=== PATIENT | male | born 1985 | race Caucasian/White ===

== ENCOUNTER 2024-04-22 05:42 | Inpatient (IN) | payer BC, SELFPAY ==
[2024-04-22] VITALS (8 sets, daily range): BP systolic 130–158; BP diastolic 80–95; PULSE 65–107; RESP 12–20; TEMP 36–37.5; O2SAT 98–99; BMI 20.6
--- OUTSIDE RECORDS SUMMARY | 2024-04-22 06:12 | XMS_ITS | Continuity of Care Document ---
Author Organization [facility] [place] Address [address] [place] [address]- Care Team Providers Care Farm Loan Representative Name Role Phone Erika Hernandez MD Primary Care Physician Encounter [facility] Date(s): 07/17/23 - 08/16/23 [facility] [address] [place] [address]- Allergies, Adverse Reactions, Alerts No Known Allergies Patient Care team information Care Team Personnel Name: Erika Hernandez MD Position: S Physician - Primary Care Member Role: PCP Address: Address: [address] [place] [id number]- Care Team Related Persons Name: DENISSE MARRUFO Address: home [address] [place] [address]
--- OUTSIDE RECORDS SUMMARY | 2024-04-22 06:12 | XMS_ITS | Continuity of Care Document ---
Author Organization [facility] ter Address [address] [place] [address]- Care Team Providers Care Field Care Coordinator Name Role Phone Not on Staff, PCP Primary Care Physician Unavail able Encounter [facility] [place] Date(s): 04/22/23 - 04/22/[address] [address]- Encounter Diagnosis Alcohol withdrawal(Final) - 04/22/23 Discharge Disposition: A-D/C Home Attending Physician: Sam Trinh MD Admitting Physician: Sam Trinh MD Referring Physician: Not on Staff, Referring MD Allergies, Adverse Reactions, Alerts No Known Allergies Medications naltrexone 50 mg oral tablet 1 tablet = 50 mg, By Mouth, Daily, for 30 days, # 30 tablet, 1 Refills, Acute 06/21/23 12:19:00 EDT, 04/22/23 12:19:00 EDT, Tablet, [id number], Partial fill upon patient request if the prescription is for a schedule II opioid drug. Start Date: 04/22/23 Stop Date: 06/21/23 Status: Ordered Results Radiology Reports * Exam Date Time Procedure Performing Provider Status 04/22/23 8:14 AM Chest 2 Views Frontal and Lat Elia , Willow; Auth (Verified) Notes: (Chest 2 Views Frontal and Lat) Reason For Exam: Chest Pain;Other: RESULT: Chest 2 Views Frontal and Lat Chest 2 Views Frontal and Lat Hx of Present Illness: shaking and bilateral hand numbness x 3 days and getting more intense; Reason: Other:; Chest Pain; Clinical Question(s): Other: COMPARISON: None. FINDINGS: LINES AND TUBES: None. LUNGS AND PLEURA: No focal consolidation. Normal pulmonary vascularity. No pleural effusion. No pneumothorax. HEART, MEDIASTINUM AND LATOYA: Heart is normal in size. Normal mediastinal and hilar contour. BONES AND SOFT TISSUES: No acute abnormality. IMPRESSION: No acute abnormality. WSN: [id number] Ordering Physician: Jessica Harding MD Dictated By: Lizbeth Herring MD Dictated Date/Time: 04/22/23 8:23 am Reviewed By: Lizbeth Herring MD Signed By: Lizbeth Herring MD Signed Date/Time: 04/22/23 8:23 am Transcribed By: DANIELLE Transcribed Date/Time: 04/22/23 8:16 am Vital Signs Most recent to oldest [Reference Range]: 1 2 3 Oxygen Saturation [94-100 %] 100 % (04/22/23 11:37 AM) 100 % (04/22/23 7:10 AM) 100 % (04/22/23 6:52 AM) Pulse Rate [55-90 bpm] 75 bpm (04/22/23 11:37 AM) 103 bpm *H* (04/22/23 7:10 AM) 129 bpm *H* (04/22/23 6:52 AM) Blood Pressure [90-138/55-84 mm Hg] 133/75mm Hg (04/22/23 11:37 AM) 147/88mm Hg *H* (04/22/23 7:21 AM) 173/86mm Hg *H* (04/22/23 7:10 AM) Respiratory Rate [16-30 br/min] 16 br/min (04/22/23 11:37 AM) 22 br/min (04/22/23 7:10 AM) Temperature [96.8-100.4 DegF] 98.0 DegF (04/22/23 7:10 AM) Mode of Delivery (Oxygen) Room air (04/22/23 11:37 AM) Room air (04/22/23 7:10 AM) Room air (04/22/23 6:52 AM) Blood pressure sites Arm, right (04/22/23 7:21 AM) Arm, right (04/22/23 7:10 AM) Temperature Route Oral (04/22/23 7:10 AM) EKG study * Event Display: ECG 12-Lead Authored Date: Please click on pdf link to open report * Event Display: ECG 12-Lead Authored Date: Ventricular Rate: 101 BPM Atrial Rate: 101 BPM P-R Interval: 130 ms QRS Duration: 108 ms Q-T Interval: 354 ms QTC Calculation(Bazett): 459 ms P Pitkin: 77 degrees R Pitkin: 93 degrees T Pitkin: 60 degrees Sinus tachycardia Rightward axis Borderline ECG No previous ECGs available Confirmed by HARRY ESCOBAR MD ([id number]) on 04/22/2023 9:06:35 AM [place]: HARRY ESCOBAR MD * Event Display: EKG Authored Date: Note * Ruthann Bazzi: PERFORM Event Display: Patient Education Leaflets Authored Date: [id number] Alcohol Withdrawal ?? [id number] Alcohol Withdrawal Alcohol withdrawal often starts after prolonged heavy drinking, and then you suddenly stop drinking. Or you cut down on your alcohol use. It is not one thing. It is a complex combination of signs andsymptoms that often occur together and define a certain problem or condition. ??? Alcohol withdrawal is potentially life-threatening. It is a medical emergency. ??? It can startas early as a couple of hours after your last drink. Or it may take 1 to 3 days to develop. ??? It can last from days to a week or more. ??? It can worsen very quickly. Signs and symptoms There are??several stages of alcohol withdrawal. But they overlap, as do their signs and symptoms. In the earlier stages, it most often includes: ??? Anxiety ??? Shakiness ??? Nausea and vomiting ???Sweating ??? Insomnia ??? Headaches ??? Fever ??? Mood swings, irritability, agitation, restlessness ?? Delirium tremens (DTs) DTs are a severe and life-threatening complication. If??DTs happen, they often start about 3 to 5 days after your last drink. They are potentially life threatening, so medical care should be sought. Symptoms of DTs include: ??? Sudden and severe mental or nervous system changes ??? Uncontrollable tremors ??? Severe disorientation, confusion, hallucinations ??? Heart racing, or irregular heartbeat??? High blood pressure ??? Seizures ??? Possible coma and ?? Home care ??? You'll need plenty of rest and fluids over the next several days. Eat regular meals and drink plenty of fluids to prevent dehydration. Don't drink any more alcohol. During this time, itis best that you're not alone. Stay with family or friends who can help and support you. You can also admit yourself to a residential detox program. ??? Don't drive until all symptoms are gone and you are feeling better. If you've had a seizure, don't drive until you've been examined by a healthcare provider. ??? If you were given sedative medicine to reduce your symptoms, don't take it more often than prescribed. Never take it with alcohol. ?? Follow-up care Once you've gone through the withdrawal symptoms, you've fought half of the silverio. To avoid the risk of going back to your past drinking pattern, it's vital that you get follow-up support and treatment. ??? Alcoholics Anonymous (AA) offers support through a self-help fellowship. There are no dues or fees. Search the internet or go to the AA website at www.aa.org to find a local meeting place. ??? [employer] offers support to families of alcohol users. Go to the Al-Anon website at www.al-anon.org . ??? Residential alcohol detox programs are available. Search the internet for treatment [facility]. ?? Call 911 Call 911 if any of these occur: ??? Seizure ??? Trouble breathing or slow, irregular breathing ??? Chest pain ??? Sudden weakness on a side of the body or sudden trouble speaking ??? Heavy bleeding or vomiting blood ??? Very drowsy or trouble awakening ??? Fainting or loss of consciousness ??? Rapid heart rate ?? When to get medical advice Call your healthcare provider right away??if any of these occur: ??? Severe shakiness ??? Hallucinations ??? Fever over 100.4?? F (38.0?? C) ??? Headache, confusion, extreme drowsiness, inability to awaken ??? Increasing upper abdominal pain ??? Repeated vomiting ?? Last Reviewed Date: 2021 ?? [id number] [employer]. All rights reserved. This information is not intended as a substitute for professional medical care. Always follow your healthcare professional's instructions. ?? * Ruthann Bazzi: PERFORM Event Display: Patient Education Leaflets Authored Date: [id number] Alcohol Withdrawal ?? [id number] Alcohol Withdrawal Alcohol withdrawal often starts after prolonged heavy drinking, and then you suddenly stop drinking. Or you cut down on your alcohol use. It is not one thing. It is a complex combination of signs andsymptoms that often occur together and define a certain problem or condition. ??? Alcohol withdrawal is potentially life-threatening. It is a medical emergency. ??? It can startas early as a couple of hours after your last drink. Or it may take 1 to 3 days to develop. ??? It can last from days to a week or more. ??? It can worsen very quickly. Signs and symptoms There are??several stages of alcohol withdrawal. But they overlap, as do their signs and symptoms. In the earlier stages, it most often includes: ??? Anxiety ??? Shakiness ??? Nausea and vomiting ???Sweating ??? Insomnia ??? Headaches ??? Fever ??? Mood swings, irritability, agitation, restlessness ?? Delirium tremens (DTs) DTs are a severe and life-threatening complication. If??DTs happen, they often start about 3 to 5 days after your last drink. They are potentially life threatening, so medical care should be sought. Symptoms of DTs include: ??? Sudden and severe mental or nervous system changes ??? Uncontrollable tremors ??? Severe disorientation, confusion, hallucinations ??? Heart racing, or irregular heartbeat??? High blood pressure ??? Seizures ??? Possible coma and ?? Home care ??? You'll need plenty of rest and fluids over the next several days. Eat regular meals and drink plenty of fluids to prevent dehydration. Don't drink any more alcohol. During this time, itis best that you're not alone. Stay with family or friends who can help and support you. You can also admit yourself to a residential detox program. ??? Don't drive until all symptoms are gone and you are feeling better. If you've had a seizure, don't drive until you've been examined by a healthcare provider. ??? If you were given sedative medicine to reduce your symptoms, don't take it more often than prescribed. Never take it with alcohol. ?? Follow-up care Once you've gone through the withdrawal symptoms, you've fought half of the silverio. To avoid the risk of going back to your past drinking pattern, it's vital that you get follow-up support and treatment. ??? Alcoholics Anonymous (AA) offers support through a self-help fellowship. There are no dues or fees. Search the internet or go to the AA website at www.aa.org to find a local meeting place. ??? [employer] offers support to families of alcohol users. Go to the Al-Anon website at www.[employer]Daily [employer].org . ??? Residential alcohol detox programs are available. Search the internet for treatment [facility]. ?? Call 911 Call 911 if any of these occur: ??? Seizure ??? Trouble breathing or slow, irregular breathing ??? Chest pain ??? Sudden weakness on a side of the body or sudden trouble speaking ??? Heavy bleeding or vomiting blood ??? Very drowsy or trouble awakening ??? Fainting or loss of consciousness ??? Rapid heart rate ?? When to get medical advice Call your healthcare provider right away??if any of these occur: ??? Severe shakiness ??? Hallucinations ??? Fever over 100.4?? F (38.0?? C) ??? Headache, confusion, extreme drowsiness, inability to awaken ??? Increasing upper abdominal pain ??? Repeated vomiting ?? Last Reviewed Date: 2021 ?? [id number] [employer]. All rights reserved. This information is not intended as a substitute for professional medical care. Always follow your healthcare professional's instructions. ?? Laboratory * [facility] , [facility] S: BILL Herring MD, Lizbeth: VERIFY Event Display: Result: Authored Date: [id number] Chest 2 Views Frontal and Lat Hx of Present Illness: shaking and bilateral hand numbness x 3 days and getting more intense; Reason: Other:; Chest Pain; Clinical Question(s): Other: COMPARISON: None. FINDINGS: LINES AND TUBES: None. LUNGS AND PLEURA: No focal consolidation. Normal pulmonary vascularity. No pleural effusion. No pneumothorax. HEART, MEDIASTINUM AND LATOYA: Heart is normal in size. Normal mediastinal and hilar contour. BONES AND SOFT TISSUES: No acute abnormality. IMPRESSION: No acute abnormality. WSN: [id number] Ordering Physician: Jessica Harding MD Dictated By: Lizbeth Herring MD Dictated Date/Time: 04/22/23 8:23 am Reviewed By: Lizbeth Herring MD Signed By: Lizbeth Herring MD Signed Date/Time: 04/22/23 8:23 am Transcribed By: DANIELLE Transcribed Date/Time: 04/22/23 8:16 am Patient Care team information Care Team Personnel Name: Not on Staff, PCP Position: [facility] Physician (General Medicine) Member Role: PCP Name: Kei Smith Position: [facility] ED TA [facility] Member Role: Vice Admiral Name: Ruthann Bazzi Position: [facility] Associate Professional Member Role: ED Physician Tuber Machine Operator Address: Address: [address] [place] [address] Name: Braulio Markham LPN Position: [facility] ED RN W/OE and Tasks Member Role: Patient Care Provider Name: Sam Trinh MD Position: [facility] ED Medicine MD Member Role: Admitting Physician Address: Address: [address] [place] [address] Name: Burke العلي RN Position: [facility] ED RN W/OE and Tasks Member Role: Patient Care Provider
--- OUTSIDE RECORDS SUMMARY | 2024-04-22 06:12 | XMS_ITS | Continuity of Care Document ---
Author Organization [facility] Primary [facility] [place] Address [address] [place] [address]- Care Team Providers Care Thread Trimmer Name Role Phone Not on Staff, PCP Primary Care Physician Unavail able Encounter [facility] [id number] Date(s): 03/16/24 - 04/15/[address] [address] Allergies, Adverse Reactions, Alerts No Known Allergies Patient Care team information Care Team Personnel Name: Not on Staff, PCP Position: S Physician (General Medicine) Member Role: PCP Care Team Related Persons Name: DENISSE MARRUFO Address: home [address] [place] [id number]
--- NOTE | 2024-04-22 06:28 | MHC.EDTECH ---
Patient was changed into hospital attire,placed on the youth nutritional monitor,belongings list completed ,mom is taking all belongings home,patient only has his cellphone. Labs drawn and sent to lab,attempted to get a urine sample patient is unable to at this time.
[2024-04-22 06:43] LABS: MANUAL DIFF FLAG NO
[2024-04-22 06:53] LABS: Basophils Absolute Auto 0.1 X10*3/uL (0.0-0.2); Basophils Percent Auto 2.5 % (0-2); Eosinophils Percent Auto 0.2 % (0-4); Hematocrit 39.6 % (42.0-52.0); Hemoglobin 14.1 g/dl (14.0-18.0); Imm Gran Abs Auto 0.03 X10*3/uL (0.00-0.03); Imm Gran Pct Auto 0.6 % (0.0-0.4); Lymphocytes Absolute Auto 0.7 X10*3/uL (1.2-4.9); Lymphocytes Percent Auto 14.4 % (20-40); Mean Corpuscular HGB Conc 35.6 g/dl (31.0-36.0); Mean Corpuscular Hemoglobin 33.7 pg (27.0-33.0); Mean Corpuscular Volume 94.7 fL (80.0-98.0); Mean Platelet Volume 9.4 fL (9.4-12.4); Monocytes Absolute Auto 0.3 X10*3/uL (0.1-1.2); Monocytes Percent Auto 5.7 % (2-11); Neutrophils Absolute Auto 3.6 x10*3/uL (2.0-8.3); Neutrophils Percent Auto 76.6 % (45-73); Platelet Count 284 X10*3/uL (160-400); Red Blood Count 4.18 X10*6/uL (4.60-5.80); Red Cell Distribution Width 13.7 % (11.0-16.0); White Blood Count 4.7 X10*3/uL (4.8-10.8)
--- NOTE | 2024-04-22 07:08 | ED.GENADULT ---
HPI - General Adult General Chief complaint: ETOH/Substance Use Stated complaint: alcohol withdrawal Time Seen by Provider: 04/22/24 06:37 Source: patient and family (mother ) Mode of arrival: ambulatory Limitations: no limitations History of Present Illness ED Provider: Teagan LICEA HPI narrative: This is a 38-year-old male history of alcohol use disorder with history of withdrawals presenting to the emergency department with concerns that he is in alcohol withdrawal reports he typically drinks 10-12 beers a day and anywere between 10-20 shots of hard liquor daily. Last drink was last night around 10, he found an old script of naltrexone and took it and it made him feel worse and aggressive. He tells me he feels shakey, his head hurts throuhgout, he feels anxious and just feels bad overall. Denies SI and hI. No drug abuse. No trauma or falls. Patient is also a dialy smoker 1 ppd x 20 years. Denies cp, sob, nausea, vomiting, abd pain, vision changes, dizziness, weakness, fevers, chills NIHSS-0 Related Data Allergies Allergy/AdvReac Type Severity Reaction Status Date / Time No Known Allergies Allergy Verified 04/22/24 05:51 [No Known Allergies*] Review of Systems Review of Systems: Yes all other systems are reviewed and are negative PMFSH Past Medical History Attestation statement: The following information was validated with the patient. Source: old records reviewed and nursing notes reviewed Social History Social History Advance Directives: No Advance Directives Information Provided: Yes Do you have a plan to hurt others: No Plan Physical Exam ED Vital Signs: Vital Signs - 24 hr 04/22/24 05:50 04/22/24 07:27 Temperature 97.7 F 98.3 F Pulse Rate 107 H 92 Respiratory Rate 20 12 Blood Pressure 158/95 H 139/89 Pulse Oximetry 99 99 Oxygen Delivery Method Room Air Room Air BMI result Body Mass Index 20.6 vss Appearance: Alert.? Oriented X3.? No acute distress.? Head: Normocephalic, atraumatic, no step-offs or deformities Eyes: Pupils equal, round and reactive to light.? ENT: + tongue faciculations CVS: Normal heart rate and rhythm.? Pulses normal.? Respiratory: No respiratory distress.? Breath sounds normal.? Abdomen: Soft and nontender.? Skin: Skin warm and dry.? Normal skin color.? Normal skin turgor.? Extremities: No lower extremity edema.? No calf ttp. 5/5 strength to bilateral upper and lower extremities + slight tremors to b/l UE Back: No midline tenderness, no C-spine tenderness, full range of motion, no CVA tenderness bilaterally Neuro: Oriented X 3.? No motor deficit.? No sensory deficit. CN 2-12 intact CIWA- 9 Course Reevaluation(s) Reevaluation #1: CBC with leukopenia, no previous labs to compare with. Normal platelets. No anemia. Chemistry no acute findings requiring intervention. Negative troponin, EKG nonischemic. Urine toxicology negative. Ethanol 139. Patient's heart rate much improved after fluids, Versed and starting phenobarbital Time: 08:45 Reevaluation #2: Plan is for hospital admission. Patient states he is feeling much better on re-evaluation patient's heart rate much improved. Time: 09:10 Medications Administered Discontinued Medications Generic Name Dose Route Start Last Admin Trade Name Awaisq PRN Reason Stop Dose Admin Midazolam HCl 1 mg 04/22/24 06:53 04/22/24 07:26 Midazolam Hcl/Pf 2 Mg/2 Ml Vial IVPUSH 04/22/24 06:54 1 mg ONCE ONE Administration Phenobarbital Sodium 350 mg 04/22/24 08:00 04/22/24 08:29 Phenobarbital Sodium 130 Mg/Ml Im Once IM 04/22/24 08:01 350 mg ONCE ONE Administration Protocol Medical Decision Making Medical Decision Making [facility] Narrative: 07 38 year old male presents w/ concerns of alcohol withdrawal PE UE tremors to b/l UE and tongue fasciculation hx and pe concerning for alchol w/ drawl. No signs of DTS. Denies SI/HI. Will rule out metabolic derangments Plan- labs, versed , seizure precautions. Differential Diagnosis Differential Diagnoses: The differential diagnosis associated with the presentation includes hx and pe concerning for alchol w/ drawl. No signs of DTS. Denies SI/HI. Will rule out metabolic derangements Admission/Observation Consideration of admission/observation: Escalation of care including admission/observation considered likely Lab Data [facility] Lab Attestation statement: I reviewed the patient's lab results. 04/22/24 06:35 04/22/24 06:38 Labs: Lab Results 04/22/24 04/22/24 04/22/24 Range/Units 06:35 06:38 07:16 WBC 4.7 L (4.8-10.8) X10*3/uL RBC 4.18 L (4.60-5.80) X10*6/uL Hgb 14.1 (14.0-18.0) g/dl Hct 39.6 L (42.0-52.0) % MCV 94.7 (80.0-98.0) fL MCH 33.7 H (27.0-33.0) pg MCHC 35.6 (31.0-36.0) g/dl RDW 13.7 (11.0-16.0) % Plt Count 284 (160-400) X10*3/uL MPV 9.4 (9.4-12.4) fL Immature Gran % (Auto) 0.6 H (0.0-0.4) % Neut % (Auto) 76.6 H (45-73) % Lymph % (Auto) 14.4 L (20-40) % [place] % (Auto) 5.7 (2-11) % Eos % (Auto) 0.2 (0-4) % Baso % (Auto) 2.5 H (0-2) % Lymph # (Auto) 0.7 L (1.2-4.9) X10*3/uL [place] # (Auto) 0.3 (0.1-1.2) X10*3/uL Eos # (Auto) 0.0 (0.0-0.4) X10*3/uL Baso # (Auto) 0.1 (0.0-0.2) X10*3/uL Abs Immat Gran (auto) 0.03 (0.00-0.03) X10*3/uL Absolute Neuts (auto) 3.6 (2.0-8.3) x10*3/uL Absolute Nucleated RBC 0.000 (0.0-0.012) X10*3/uL Nucleated RBC % (auto) 0.0 (0.0-0.2) /100WBC Sodium 140 (135-145) mmol/L Potassium 4.0 (3.3-5.1) mmol/L Chloride 101 (96-108) mmol/L Carbon Dioxide 24 (22-29) mmol/L Anion Gap 19 (12-20) BUN 9 (9-16) mg/dL Creatinine 0.70 (0.5-1.4) mg/dL Estim Creat Clear Calc 131.7 Estimated GFR > 60 Random Glucose 91 (60-115) mg/dL Calcium 9.2 (8.4-10.2) mg/dL Total Bilirubin 0.4 (0.0-1.0) mg/dL AST 37 (5-37) U/L ALT 27 (0-40) U/L Alkaline Phosphatase 64 (39-117) U/L Troponin I High Sens < 2.7 (<3.5-35.0) ng/L Total Protein 6.9 (6.5-8.0) g/dL Albumin 4.5 (3.5-5.0) g/dL Urine Opiates Screen Not Detected (Not Detect) Ur Buprenorphine Scrn Not Detected (Not Detect) ng/mL Ur Oxycodone Screen Not Detected (Not Detect) ng/mL Urine Methadone Screen Not Detected (Not Detect) ng/mL Urine Fentanyl Screen Not Detected (Not Detect) Ur Barbiturates Screen Not Detected (Not Detect) Ur Phencyclidine Scrn Not Detected (Not Detect) Ur Amphetamines Screen Not Detected (Not Detect) U Benzodiazepines Scrn Not Detected (Not Detect) Urine Cocaine Screen Not Detected (Not Detect) U Marijuana (THC) Screen Not Detected (Not Detect) Ethyl Alcohol 139 mg/dL Independent Interpretation I performed an independent interpretation of an: EKG (Vent. Rate : 082 BPM Atrial Rate : 082 BPM P-R Int : 126 ms QRS Dur : 120 ms QT Int : 388 ms P-R-T Axes : 061 079 076 degrees QTc Int : 453 ms Normal sinus rhythm RSR' or QR pattern in V1 suggests right ventricular conduction delay Borderline ECG When compared with ECG) Radiology Impression Discussion of test interpretation with radiology: I have reviewed the radiologist's reading. Independent Historian Clinical information obtained from an independent historian. History obtained from or confirmed by: Parent Chronic Conditions Patient?s care impacted by: Other (alcohol use disorder ) Social Determinants Patient?s care significantly limited by Social Determinants of Health including: Alcoholism and drug addiction in family Critical Care Time Critical Care Time Critical Care Time: Yes Total Critical Care Time: 45 Attestation: I attest to this time spent taking care of the patient, obtaining history, physical, reviewing labs, imaging, speaking to my attending, specialist or hospitalist. Discharge Plan Discharge Clinical Impression: Alcohol withdrawal syndrome Patient Disposition: Still a Patient Print Language: South African
--- NOTE | 2024-04-22 07:15 | ECG_ITS ---
Test Reason : TACHYCARDIA Blood Pressure : / mmHG Vent. Rate : 082 BPM Atrial Rate : 082 BPM P-R Int : 126 ms QRS Dur : 120 ms QT Int : 388 ms P-R-T Axes : 061 079 076 degrees QTc Int : 453 ms Normal sinus rhythm RSR' or QR pattern in V1 suggests right ventricular conduction delay Borderline ECG When compared with ECG of 01-JUN-2017 20:27, No significant change was found Referred By: Tylor Maria Electronically Signed By:JOSEPH PICKARD
[2024-04-22 07:21] LABS: Alanine Aminotransferase 27 U/L (0-40); Albumin Level 4.5 g/dL (3.5-5.0); Alkaline Phosphatase 64 U/L (39-117); Anion Gap 19 (12-20); Aspartate Amino Transferase 37 U/L (5-37); Bilirubin Total 0.4 mg/dL (0.0-1.0); Blood Urea Nitrogen 9 mg/dL (9-16); Calcium 9.2 mg/dL (8.4-10.2); Carbon Dioxide 24 mmol/L (22-29); Chloride 101 mmol/L (96-108); Creatinine Clr Calc Pharmacy 131.7; Estimated Glomerular Filt Rate > 60; Glucose Random 91 mg/dL (60-115); Sodium 140 mmol/L (135-145); Total Protein 6.9 g/dL (6.5-8.0)
[2024-04-22] MEDS: Midazolam HCl/PF 2 MG/2 ML VIAL 1 MG IVPUSH (07:26)
[2024-04-22 07:39] LABS: Amphetamine Screen Urine Not Detected (Not Detect); Barbiturates, Urine Not Detected (Not Detect); Benzodiazepines Screen Urine Not Detected (Not Detect); Buprenorphine Scr Not Detected (Not Detect); Cannabinoid Screen Urine Not Detected (Not Detect); Cocaine Screen Urine Not Detected (Not Detect); Fentanyl, urine Not Detected (Not Detect); Methadone Screen, Urine Not Detected (Not Detect); Opiate Screen Urine Not Detected (Not Detect); Oxycodone Screen Urine Not Detected (Not Detect); Phencyclidine Screen Urine Not Detected (Not Detect)
[2024-04-22 07:47] LABS: Ethanol 139 mg/dL
[2024-04-22 07:59] LABS: Troponin-I High Sensitivity < 2.7 ng/L (<3.5-35.0)
[2024-04-22] MEDS: PHENobarbitaL sodium 130 MG/ML IM ONCE 350 MG IM (08:29)
--- NOTE | 2024-04-22 09:44 | P.HPHOSP_ITS ---
History of Present Illness Date of Service: 04/22/24 Chief Complaint: alcohol withdrawal 38yo M w AUD who drinks 10-12 servings of beer plus 10 shots of hard liquor daily; last drink last night around 10pm. He took 1 dose of an old prescription for naltrexone and felt nauseous and vomited. Today he comes in with tremulousness and headache and is concerned he is withdrawing. BP 158/95, HR 107 on arrival; currently BP 147/83, HR 87. C/o pounding frontal headache. No N/V. No hx cirrhosis or cardiomyopathy. One prior episode of withdrawal treated from the ED; no hx of seizures. Smokes 1 ppd; no other substance abuse. In the ED, he got 1 mg IV midazolam then was loaded with phenobarbital IM. Review of Systems 2 Review of Systems: Yes all other systems are reviewed and are negative [facility] Medical History (Updated 04/22/24 @ 09:48 by Carissa Wolff MD) Tobacco abuse Alcohol use disorder Social History Advance Directives: No Advance Directives Information Provided: Yes Do you have a plan to hurt others: No Plan Meds Allergies Allergy/AdvReac Type Severity Reaction Status Date / Time No Known Allergies Allergy Verified 04/22/24 05:51 [No Known Allergies*] Active Medications: Current Medications Pharmacy Consult (Consult Rx Etoh Phenob Im/Po) 1 each MISCELLANE ONCE PRN; Protocol PRN Reason: Consult order Phenobarbital (Phenobarbital 15 Mg Tablet) 45 mg PO BID [facility]; Protocol Stop: 04/24/24 09:01 Phenobarbital (Phenobarbital 30 Mg Tablet) 30 mg PO BID [facility]; Protocol Stop: 04/26/24 09:01 Phenobarbital (Phenobarbital 30 Mg Tablet) 30 mg PO DAILY [facility]; Protocol Stop: 04/28/24 09:01 Phenobarbital Sodium (Phenobarbital Sodium 130 Mg/Ml Vial Im Q3hx2) 263 mg IM Q3H [facility]; Protocol Stop: 04/22/24 14:01 Physical Exam 2 Vital Signs and Narrative: Vital Signs: Last Vital Signs Temp 98.3 F 04/22/24 09:29 Pulse 87 04/22/24 09:29 Resp 12 04/22/24 09:29 BP 147/83 H 04/22/24 09:29 Pulse Ox 98 04/22/24 09:29 O2 Del Method Room Air 04/22/24 09:29 BMI result Body Mass Index 20.6 Gen: tremulous HEENT: sclera anicteric, moist mucus membranes Neck: supple Lungs: clear to auscultation bilaterally Heart: regular rate and rhythm, no murmurs Abd: soft, non-tender, non-distended Ext: no edema Skin: warm/well-perfused Neuro: alert and oriented x3, no focal findings Psych: appropriate affect Results Labs 04/22/24 06:35 04/22/24 06:38 Labs: Laboratory Results - last 24 hr 04/22/24 04/22/24 04/22/24 06:35 06:38 07:16 MCV 94.7 MCH 33.7 H MCHC 35.6 RDW 13.7 Plt Count 284 MPV 9.4 Immature Gran % (Auto) 0.6 H Neut % (Auto) 76.6 H Lymph % (Auto) 14.4 L Livingston % (Auto) 5.7 Eos % (Auto) 0.2 Baso % (Auto) 2.5 H Lymph # (Auto) 0.7 L [place] # (Auto) 0.3 Eos # (Auto) 0.0 Baso # (Auto) 0.1 Abs Immat Gran (auto) 0.03 Absolute Neuts (auto) 3.6 Absolute Nucleated RBC 0.000 Nucleated RBC % (auto) 0.0 Anion Gap 19 Estim Creat Clear Calc 131.7 Estimated GFR > 60 Random Glucose 91 Calcium 9.2 Total Bilirubin 0.4 AST 37 ALT 27 Alkaline Phosphatase 64 Troponin I High Sens < 2.7 Total Protein 6.9 Albumin 4.5 Urine Opiates Screen Not Detected Ur Buprenorphine Scrn Not Detected Ur Oxycodone Screen Not Detected Urine Methadone Screen Not Detected Urine Fentanyl Screen Not Detected Ur Barbiturates Screen Not Detected Ur Phencyclidine Scrn Not Detected Ur Amphetamines Screen Not Detected U Benzodiazepines Scrn Not Detected Urine Cocaine Screen Not Detected U Marijuana (THC) Screen Not Detected Ethyl Alcohol 139 Assessment and Plan (1) Alcohol withdrawal syndrome: Status: Acute Plan 38yo M with AUD presenting with EtOH withdrawal syndrome. EtOH withdrawal - admit to telemetry, continue phenobarbital taper [loaded 12 mg/kg], give thiamine/folate/multivitamin, give IV fluids, consult Addiction Medicine tobacco abuse - NRT VTE prophylaxis - SCDs, ambulation dispo - eventual home or inpt rehab code status - full I anticipate that the patient will stay at least 2 midnights as an inpatient in the hospital due to the above reasons. It is neither reasonable nor safe to care for them in a less acute setting. Quality Stroke Does the patient have a stroke diagnosis?: No VTE Prior VTE?: No VTE Risk Level:: Medical - moderate - high VTE Device Contraindication: N/A - Device Ordered VTE Drug Contraindication: Treatment Not Indicated
[2024-04-22] MEDS: Nicotine 14 MG PATCH.TD24 TRANSDERMA (10:15)
[2024-04-22] MEDS: Thiamine HCL 100 MG TABLET PO (10:16)
[2024-04-22] MEDS: Multivitamin TABLET 1 TAB PO (10:16)
--- NOTE | 2024-04-22 10:16 | PHA.MEDREC ---
Pharmacy Consult ? Medication Reconciliation Pharmacy has completed the medication reconciliation. Confirmed medication with patient.
[2024-04-22] MEDS: Folic Acid 1 MG TABLET PO (10:17)
[2024-04-22] MEDS: Butalb/Acetamin/Caff 50/325/40 TABLET 1 TAB PO (10:17)
[2024-04-22] MEDS: Lactated Ringers 1,000 ML 125 ML IVCONT ×3 (10:20→20:36)
[2024-04-22] MEDS: PHENobarbitaL sodium 130 MG/ML VIAL IM Q3Hx2 234 MG IM ×2 (11:28→14:28)
--- NOTE | 2024-04-22 11:36 | PC.NURSE ---
patient resting quietly in bed, respirations equal and unlabored, VSS. patient CIWA 2. patient states the headache prn medication he received took his headache away. patient is alert and oriented x4. LR running at 125ml/hr, call guzman within reach, side rails up.
[2024-04-22] MEDS: PHENobarbitaL 15 MG TABLET 45 MG PO (20:31)
[2024-04-22] MEDS: 0.9 % Sodium Chloride Flush 3 ML SYRINGE IVFLUSH (20:33)
[2024-04-22] MEDS: Acetaminophen 325 MG TABLET 650 MG PO (20:41)
[2024-04-23] VITALS: BP 120/83; PULSE 55; RESP 20; TEMP 36.1; O2SAT 100
[2024-04-23 03:44] VITALS: BP 106/76; PULSE 59; RESP 20; TEMP 36.1; O2SAT 99
[2024-04-23] MEDS: Lactated Ringers 1,000 ML 125 ML IVCONT (05:06)
[2024-04-23 07:40] VITALS: BP 122/91; PULSE 65; RESP 18; TEMP 36.5; O2SAT 99
[2024-04-23 07:51] LABS: Hematocrit 39.5 % (42.0-52.0); Hemoglobin 13.7 g/dl (14.0-18.0); Mean Corpuscular HGB Conc 34.7 g/dl (31.0-36.0); Mean Corpuscular Hemoglobin 33.4 pg (27.0-33.0); Mean Corpuscular Volume 96.3 fL (80.0-98.0); Mean Platelet Volume 10.3 fL (9.4-12.4); Platelet Count 254 X10*3/uL (160-400); Red Cell Distribution Width 13.2 % (11.0-16.0); White Blood Count 6.5 X10*3/uL (4.8-10.8)
[2024-04-23 08:07] LABS: Alanine Aminotransferase 26 U/L (0-40); Albumin Level 3.9 g/dL (3.5-5.0); Alkaline Phosphatase 65 U/L (39-117); Anion Gap 14 (12-20); Aspartate Amino Transferase 54 U/L (5-37); Bilirubin Total 0.8 mg/dL (0.0-1.0); Blood Urea Nitrogen 5 mg/dL (9-16); Carbon Dioxide 27 mmol/L (22-29); Chloride 99 mmol/L (96-108); Creatinine Clr Calc Pharmacy 146.3; Estimated Glomerular Filt Rate > 60; Glucose Random 86 mg/dL (60-115); Magnesium 1.9 mg/dL (1.6-2.6); Potassium 4.2 mmol/L (3.3-5.1); Sodium 136 mmol/L (135-145); Total Protein 6.3 g/dL (6.5-8.0)
[2024-04-23] MEDS: Nicotine 14 MG PATCH.TD24 TRANSDERMA (09:13)
[2024-04-23] MEDS: Folic Acid 1 MG TABLET PO (09:13)
[2024-04-23] MEDS: PHENobarbitaL 15 MG TABLET 45 MG PO ×2 (09:13→21:45)
[2024-04-23] MEDS: Thiamine HCL 100 MG TABLET PO (09:13)
[2024-04-23] MEDS: Multivitamin TABLET 1 TAB PO (09:13)
--- NOTE | 2024-04-23 10:36 | HO.PM.IMPN ---
Subjective Subjective Date of Service: 04/23/24 Interval History: a little shaky but finally able to eat this AM; interested in sobriety Review of Systems Review of Systems: Yes all other systems are reviewed and are negative Physical Exam Vital Signs: Vital Signs: Last Vital Signs Temp 97.7 F 04/23/24 07:40 Pulse 65 04/23/24 07:40 Resp 18 04/23/24 07:40 BP 122/91 H 04/23/24 07:40 Pulse Ox 99 04/23/24 07:40 O2 Del Method Room Air 04/23/24 07:40 BMI result Body Mass Index 20.6 Gen: in no acute distress, mildly tremulous HEENT: sclera anicteric, moist mucus membranes Neck: supple Lungs: clear to auscultation bilaterally Heart: regular rate and rhythm, no murmurs Abd: soft, non-tender, non-distended Ext: no edema Skin: warm/well-perfused Neuro: alert and oriented x3, no focal findings Psych: appropriate affect Objective Data Active Medications Acetaminophen (Acetaminophen 325 Mg Tablet) 650 mg PO Q6H PRN PRN Reason: Pain, Mild (Pain Scale 1-3) Last Admin: 04/22/24 20:41 Dose: 650 mg Documented By: CRYSTAL Acetaminophen/Butalbital/Caffeine (Butalb/Acetamin/Caff 50/325/40 Tablet) 1 tab PO Q4H PRN PRN Reason: Headache Folic Acid (Folic Acid 1 Mg Tablet) 1 mg PO DAILY [facility] Last Admin: 04/23/24 09:13 Dose: 1 mg Documented By: CHARISSE Lactated Ringer's (Lr) 1,000 mls @ 125 mls/hr IVCONT .Q8H [facility] Last Admin: 04/23/24 05:06 Dose: 125 mls/hr Documented By: CRYSTAL Multivitamins/Vitamin C (Multivitamin Tablet) 1 tab PO DAILY [facility] Last Admin: 04/23/24 09:13 Dose: 1 tab Documented By: CHARISSE Nicotine (Nicotine 14 Mg Patch.Td24) 14 mg TRANSDERMA DAILY [facility] Last Admin: 04/23/24 09:13 Dose: 14 mg Documented By: CHARISSE Ondansetron HCl (Ondansetron Hcl 4 Mg/2 Ml Vial) 4 mg IVPUSH Q4H PRN PRN Reason: Nausea and Vomiting Pharmacy Consult (Consult Rx Etoh Phenob Im/Po) 1 each MISCELLANE ONCE PRN; Protocol PRN Reason: Consult order Phenobarbital (Phenobarbital 15 Mg Tablet) 45 mg PO BID [facility]; Protocol Stop: 04/24/24 09:01 Last Admin: 04/23/24 09:13 Dose: 45 mg Documented By: CHARISSE Phenobarbital (Phenobarbital 30 Mg Tablet) 30 mg PO BID [facility]; Protocol Stop: 04/26/24 09:01 Phenobarbital (Phenobarbital 30 Mg Tablet) 30 mg PO DAILY [facility]; Protocol Stop: 04/28/24 09:01 Sodium Chloride (0.9 % Sodium Chloride Flush 3 Ml Syringe) 3 ml IVFLUSH QSHIFT [facility] Last Admin: 04/23/24 09:15 Dose: Not Given Documented By: CHARISSE Non-Admin Reason: IV Running Thiamine HCl (Thiamine Hcl 100 Mg Tablet) 100 mg PO DAILY [facility] Last Admin: 04/23/24 09:13 Dose: 100 mg Documented By: CHARISSE Labs 04/23/24 07:11 04/23/24 07:11 Labs: Laboratory Results - last 24 hr 04/23/24 07:11 MCV 96.3 MCH 33.4 H MCHC 34.7 RDW 13.2 Plt Count 254 MPV 10.3 Absolute Nucleated RBC 0.000 Nucleated RBC % (auto) 0.0 Anion Gap 14 Estim Creat Clear Calc 146.3 Estimated GFR > 60 Random Glucose 86 Calcium 9.0 Magnesium 1.9 Total Bilirubin 0.8 AST 54 H ALT 26 Alkaline Phosphatase 65 Total Protein 6.3 L Albumin 3.9 Assessment and Plan (1) Alcohol withdrawal syndrome: Status: Acute Assessment and Plan: d2 38yo M with AUD presenting with EtOH withdrawal syndrome EtOH withdrawal - continue phenobarbital taper [loaded 12 mg/kg], give thiamine/folate/multivitamin, d/c IV fluids, consult Addiction Medicine tobacco abuse - NRT VTE prophylaxis - SCDs, ambulation dispo - eventual home or inpt rehab In my clinical judgment, the patient requires continued inpatient hospitalization for the following reasons: phenobarbital taper Total time managing care of this patient today: 35 minutes. Quality Stroke Does the patient have a stroke diagnosis?: No VTE Prior VTE?: No VTE Risk Level:: Medical - moderate - high VTE Device Contraindication: N/A - Device Ordered VTE Drug Contraindication: Treatment Not Indicated
--- NOTE | 2024-04-23 11:22 | MHC.RECOVRN ---
Met with pt in 475 after consult placed to Addiction Medicine for alcohol use. Pt had presented to the ED for evaluation of alcohol withdrawal. Pt reported he experienced withdrawal about 2 years ago but did not have seizures. Upon evaluation, pt admitted for treatment of alcohol withdrawal. Pt laying in bed, awake, alert, easily engages in conversation, somewhat guarded regarding alcohol use. Pt reports drinking 10-12 beers daily plus 10-20 shots whiskey x an unknown amount of time. Pt states it goes in spurts. Pt reports his use has recently increased due to stress related to having taxes not done. Pt reports he had a similar experience 2 years ago and went to [facility]. He was started on naltrexone at that time and took it for a short period. Pt reports it was helpful. Pt reports after [facility] he drank non-alcohol containing beer x 2 months. This was his longest period in recovery. Pt denies other hospitalizations or ATS admissions. 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 Has never received a DUI or had legal involvement related to alcohol use. Pt reports he lives with his mother who is concerned regarding alcohol use and supportive of patient's recovery. Pt reports he tried to go to AA once but got scared. Discussed recovery supports and resources, including inpatient and outpatient treatment, recovery coaching, [place]. Pt is interested in restarting naltrexone and connecting to the [facility]. Pt provided with written resources as well as t/w contact information if needed. Pt denies questions or concerns for t/w. [facility] appt 05/01/24 at 4 pm. Discussed with Mimi Rosado APRN.
[2024-04-23 11:41] VITALS: BP 124/67; PULSE 90; RESP 17; TEMP 36.6; O2SAT 97
--- NOTE | 2024-04-23 14:49 | MHC.CM.PN ---
Pt lives with his parents, he does not have a PCP, brochre given for him to call for appt. HCP was discussed, he said that the form was given to him here and he will work on it with his mother. He works daytime babysitter, is independent, no home health services. CM to follow for DC needs.
[2024-04-23 16:00] VITALS: BP 122/89; PULSE 89; RESP 17; TEMP 36.4; O2SAT 99
[2024-04-23] MEDS: Acetaminophen 325 MG TABLET 650 MG PO (16:07)
[2024-04-23 20:00] VITALS: BP 127/75; PULSE 84; RESP 20; TEMP 36.5; O2SAT 97
[2024-04-23] MEDS: 0.9 % Sodium Chloride Flush 3 ML SYRINGE IVFLUSH (21:46)
[2024-04-24] VITALS: BP 102/69; PULSE 77; RESP 20; TEMP 36.1; O2SAT 99
[2024-04-24 03:46] VITALS: BP 109/58; PULSE 63; RESP 20; TEMP 36.1; O2SAT 99
[2024-04-24 08:00] VITALS: BP 110/66; PULSE 74; RESP 17; TEMP 36.3; O2SAT 99
[2024-04-24] MEDS: PHENobarbitaL 15 MG TABLET 45 MG PO (09:21)
[2024-04-24] MEDS: Thiamine HCL 100 MG TABLET PO (09:21)
[2024-04-24] MEDS: Multivitamin TABLET 1 TAB PO (09:21)
[2024-04-24] MEDS: 0.9 % Sodium Chloride Flush 3 ML SYRINGE IVFLUSH ×3 (09:21→21:14)
[2024-04-24] MEDS: Nicotine 14 MG PATCH.TD24 TRANSDERMA (09:21)
[2024-04-24] MEDS: Folic Acid 1 MG TABLET PO (09:21)
--- NOTE | 2024-04-24 09:35 | P.PNIM_ITS ---
Subjective Subjective Date of Service: 04/24/24 Interval History: was a little shaky last night but this resolved headaches improved tolerating diet interested in [employer] to maintain sobriety Review of Systems Review of Systems: Yes all other systems are reviewed and are negative Physical Exam 2 Vital Signs: Vital Signs: Last Vital Signs Temp 97.4 F 04/24/24 08:00 Pulse 74 04/24/24 08:00 Resp 17 04/24/24 08:00 BP 110/66 04/24/24 08:00 Pulse Ox 99 04/24/24 08:00 O2 Del Method Room Air 04/24/24 08:00 BMI result Body Mass Index 20.6 Gen: in no acute distress HEENT: sclera anicteric, moist mucus membranes Neck: supple Lungs: clear to auscultation bilaterally Heart: regular rate and rhythm, no murmurs Abd: soft, non-tender, non-distended Ext: no edema Skin: warm/well-perfused Neuro: alert and oriented x3, no focal findings Psych: appropriate affect Objective Data Active Medications Acetaminophen (Acetaminophen 325 Mg Tablet) 650 mg PO Q6H PRN PRN Reason: Pain, Mild (Pain Scale 1-3) Last Admin: 04/23/24 16:07 Dose: 650 mg Documented By: CHARISSE Acetaminophen/Butalbital/Caffeine (Butalb/Acetamin/Caff 50/325/40 Tablet) 1 tab PO Q4H PRN PRN Reason: Headache Folic Acid (Folic Acid 1 Mg Tablet) 1 mg PO DAILY [facility] Last Admin: 04/24/24 09:21 Dose: 1 mg Documented By: CHARISSE Multivitamins/Vitamin C (Multivitamin Tablet) 1 tab PO DAILY [facility] Last Admin: 04/24/24 09:21 Dose: 1 tab Documented By: CHARISSE Nicotine (Nicotine 14 Mg Patch.Td24) 14 mg TRANSDERMA DAILY [facility] Last Admin: 04/24/24 09:21 Dose: 14 mg Documented By: CHARISSE Ondansetron HCl (Ondansetron Hcl 4 Mg/2 Ml Vial) 4 mg IVPUSH Q4H PRN PRN Reason: Nausea and Vomiting Pharmacy Consult (Consult Rx Etoh Phenob Im/Po) 1 each MISCELLANE ONCE PRN; Protocol PRN Reason: Consult order Phenobarbital (Phenobarbital 30 Mg Tablet) 30 mg PO BID [facility]; Protocol Stop: 04/26/24 09:01 Phenobarbital (Phenobarbital 30 Mg Tablet) 30 mg PO DAILY [facility]; Protocol Stop: 04/28/24 09:01 Sodium Chloride (0.9 % Sodium Chloride Flush 3 Ml Syringe) 3 ml IVFLUSH QSHIFT [facility] Last Admin: 04/24/24 09:21 Dose: 3 ml Documented By: CHARISSE Thiamine HCl (Thiamine Hcl 100 Mg Tablet) 100 mg PO DAILY [facility] Last Admin: 04/24/24 09:21 Dose: 100 mg Documented By: CHARISSE Labs 04/23/24 07:11 04/23/24 07:11 Assessment and Plan (1) Alcohol withdrawal syndrome: Status: Acute Assessment and Plan: d3 38yo M with AUD presenting with EtOH withdrawal syndrome EtOH withdrawal - continue phenobarbital taper [loaded 12 mg/kg], give thiamine/folate/multivitamin, consult Addiction Medicine re Vivitrol tobacco abuse - NRT VTE prophylaxis - SCDs, ambulation dispo - eventual home or inpt rehab In my clinical judgment, the patient requires continued inpatient hospitalization for the following reasons: phenobarbital taper Total time managing care of this patient today: 35 minutes. Quality Stroke Does the patient have a stroke diagnosis?: No VTE Prior VTE?: No VTE Risk Level:: Medical - moderate - high VTE Device Contraindication: N/A - Device Ordered VTE Drug Contraindication: Treatment Not Indicated
--- NOTE | 2024-04-24 10:38 | MHC.CM.PN ---
EMR REVIEWED, PT W/ETOH WITHDRAWAL, PER HOSPITALIST PT WILL REMAIN INPT FOR ONE MORE NIGHT, PLAN TO START VIVITROL PRIOR TO DC HOME SELF CARE, PT'S MOTHER TO TRANSPORT HOME.
[2024-04-24 11:37] VITALS: BP 125/72; PULSE 84; RESP 17; TEMP 36.6; O2SAT 99
--- NOTE | 2024-04-24 14:38 | HO.ADDICTCON ---
History of Present Illness Date of Service: 04/24/2024 Chief Complaint: alcohol withdrawal Reason for Consult: alcohol use disorder Sources of Information: patient interviewed and chart reviewed HPI Narrative: Patient is a 38 year old male medically admitted with alcohol withdrawal. Seen by ski patroller during admission and verbalized desire to restart medication for AUD. Substance use and treatment History: -started drinking at age 18 -around age 30 drinking progressed from socially to daily -drinks both beer and hard liquor (at least ten beers daily and numerous shots of whiskey) -denies any other substance use -denies any history of formal treatment --was at [facility] 2 years ago for alcohol withdrawal, and started naltrexone but no provider follow up -no history of mutual aid groups, IOP, recovery coaching, etc -tolerated naltrexone-and abstained from alcohol for about a month while on it -strong family history of AUD Denies any BH treatment history, but reporting significant anxiety and depressive sx, including racing thoughts, poor sleep, poor appetite Strong family supports from mother, brother and 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 Review of Systems Constitutional: Reports as per HPI Comments: withdrawal sx resolved Diagnostics Vital Signs (24Hr): Vital Signs - 24 hr 04/23/24 16:00 04/23/24 20:00 04/24/24 00:00 Temperature 97.5 F 97.7 F 96.9 F Pulse Rate 89 84 77 Respiratory Rate 17 20 20 Blood Pressure 122/89 127/75 102/69 Pulse Oximetry 99 97 99 Oxygen Delivery Method Room Air Room Air Room Air 04/24/24 03:46 04/24/24 08:00 04/24/24 11:37 Temperature 96.9 F 97.4 F 97.8 F Pulse Rate 63 74 84 Respiratory Rate 20 17 17 Blood Pressure 109/58 L 110/66 125/72 Pulse Oximetry 99 99 99 Oxygen Delivery Method Room Air Room Air Room Air BMI result Body Mass Index 20.6 Labs 04/23/24 07:11 04/23/24 07:11 Labs: Laboratory Results - last 48 hr 04/23/24 07:11 WBC 6.5 RBC 4.10 L Hgb 13.7 L Hct 39.5 L MCV 96.3 MCH 33.4 H MCHC 34.7 RDW 13.2 Plt Count 254 MPV 10.3 Absolute Nucleated RBC 0.000 Nucleated RBC % (auto) 0.0 Sodium 136 Potassium 4.2 Chloride 99 Carbon Dioxide 27 Anion Gap 14 BUN 5 L Creatinine 0.63 Estim Creat Clear Calc 146.3 Estimated GFR > 60 Random Glucose 86 Calcium 9.0 Magnesium 1.9 Total Bilirubin 0.8 AST 54 H ALT 26 Alkaline Phosphatase 65 Total Protein 6.3 L Albumin 3.9 Mental Status Exam Mental Status Exam Patient Appearance: Appropriate Level of Consciousness: Awake, Appropriate and Alert Patient Behavior: Appropriate and Cooperative Mood Description: Anxious Affect Description: Anxious Speech Pattern: Clear Memory Description: Intact Thought Content: positive for Intact Depressive Symptoms: Increased Anxiety, Difficulty Sleeping, Changes in Appetite, Feelings of Guilt and Low Self Esteem Judgement: Good Medications Medications Current Medications Acetaminophen (Acetaminophen 325 Mg Tablet) 650 mg PO Q6H PRN PRN Reason: Pain, Mild (Pain Scale 1-3) Last Admin: 04/23/24 16:07 Dose: 650 mg Acetaminophen/Butalbital/Caffeine (Butalb/Acetamin/Caff 50/325/40 Tablet) 1 tab PO Q4H PRN PRN Reason: Headache Folic Acid (Folic Acid 1 Mg Tablet) 1 mg PO DAILY [facility] Last Admin: 04/24/24 09:21 Dose: 1 mg Multivitamins/Vitamin C (Multivitamin Tablet) 1 tab PO DAILY [facility] Last Admin: 04/24/24 09:21 Dose: 1 tab Nicotine (Nicotine 14 Mg Patch.Td24) 14 mg TRANSDERMA DAILY [facility] Last Admin: 04/24/24 09:21 Dose: 14 mg Ondansetron HCl (Ondansetron Hcl 4 Mg/2 Ml Vial) 4 mg IVPUSH Q4H PRN PRN Reason: Nausea and Vomiting Pharmacy Consult (Consult Rx Etoh Phenob Im/Po) 1 each MISCELLANE ONCE PRN; Protocol PRN Reason: Consult order Phenobarbital (Phenobarbital 30 Mg Tablet) 30 mg PO BID [facility]; Protocol Stop: 04/26/24 09:01 Phenobarbital (Phenobarbital 30 Mg Tablet) 30 mg PO DAILY [facility]; Protocol Stop: 04/28/24 09:01 Sodium Chloride (0.9 % Sodium Chloride Flush 3 Ml Syringe) 3 ml IVFLUSH QSHIFT [facility] Last Admin: 04/24/24 09:21 Dose: 3 ml Thiamine HCl (Thiamine Hcl 100 Mg Tablet) 100 mg PO DAILY [facility] Last Admin: 04/24/24 09:21 Dose: 100 mg Allergies Allergies Allergy/AdvReac Type Severity Reaction Status Date / Time No Known Allergies Allergy Verified 04/22/24 05:51 [No Known Allergies*] Assessment & Plan Assessment & Plan (1) Alcohol use disorder, severe, dependence: Status: Acute Code(s): F10.20 - Alcohol dependence, uncomplicated Assessment and Plan: mirtazipine 7.5mg HS. Discussed medication, dosing, side effects and goals of treatment restart naltrexone at 25mg daily X3 days then increase to 50mg daily will send prescriptions for both medications to patients pharmacy as he is scheduled to discharge tomorrow appt with [facility] 04/28@ 3:30pm telehealth Total time managing care of this patient today __50__ minutes. [facility] Past Medical History Medical History (Updated 04/24/24 @ 15:07 by Mimi Rosado CNP) Tobacco abuse Alcohol use disorder Social History Social History Alcohol intake: current Alcohol intake frequency: 3 or more drinks per day Alcohol type: beer and hard liquor Patient Tobacco Use Status: Current everyday Tobacco user Tobacco use type: Cigarette e-Cigarette/Vaping Use: Currently Using service: No
[2024-04-24 16:00] VITALS: BP 125/67; PULSE 92; RESP 16; TEMP 36.3; O2SAT 98
[2024-04-24] MEDS: Naltrexone HCl 50 MG TABLET 25 MG PO (18:33)
[2024-04-24 19:16] VITALS: BP 118/76; PULSE 83; RESP 18; TEMP 36.4; O2SAT 99
[2024-04-24] MEDS: PHENobarbitaL 30 MG TABLET PO (21:13)
[2024-04-24] MEDS: Mirtazapine 7.5 MG TABLET PO (21:13)
[2024-04-25 04:00] VITALS: BP 99/65; PULSE 61; RESP 18; TEMP 36.1; O2SAT 98
[2024-04-25 07:41] VITALS: BP 120/68; PULSE 74; RESP 20; TEMP 36.2; O2SAT 100
[2024-04-25] MEDS: Nicotine 14 MG PATCH.TD24 TRANSDERMA (09:02)
[2024-04-25] MEDS: Multivitamin TABLET 1 TAB PO (09:03)
[2024-04-25] MEDS: Thiamine HCL 100 MG TABLET PO (09:03)
[2024-04-25] MEDS: Naltrexone HCl 50 MG TABLET 25 MG PO (09:03)
[2024-04-25] MEDS: PHENobarbitaL 30 MG TABLET PO (09:03)
[2024-04-25] MEDS: Folic Acid 1 MG TABLET PO (09:03)
[2024-04-25] MEDS: 0.9 % Sodium Chloride Flush 3 ML SYRINGE IVFLUSH (09:07)
--- NOTE | 2024-04-25 09:41 | PM.DS ---
DS: Providers Provider Date of Service: 04/25/24 Date of admission: 04/22/24 09:42 Date of discharge: 04/25/24 Primary care physician: None Physician Consults: 04/22/24 09:41 Addiction Medicine Routine Consulting Provider: Addiction Covering Reason for consultation: etoh DS: Diagnosis Discharge Diagnosis (1) Alcohol use disorder, severe, dependence: Status: Acute (2) Alcohol withdrawal syndrome: Status: Acute DS: Summary Hospital Course Hospital Course: from my admission H+P, 04/22/24: 38yo M w AUD who drinks 10-12 servings of beer plus 10 shots of hard liquor daily; last drink last night around 10pm. He took 1 dose of an old prescription for naltrexone and felt nauseous and vomited. Today he comes in with tremulousness and headache and is concerned he is withdrawing. BP 158/95, HR 107 on arrival; currently BP 147/83, HR 87. C/o pounding frontal headache. No N/V. No hx cirrhosis or cardiomyopathy. One prior episode of withdrawal treated from the ED; no hx of seizures. Smokes 1 ppd; no other substance abuse. In the ED, he got 1 mg IV midazolam then was loaded with phenobarbital IM. He was admitted to the hospitalist service for phenobarbital taper and did well with complete resolution of withdrawal syndrome. He is firmly committed to sobriety and met with the Addiction Medicine Team. He was started on naltrexone and mirtazapine and will follow up with [facility] for transition to [facility]. Time Attestation Discharge Coordination Time (in mins): 35 Quality: Safe Use of Opioids Does Pt have an Active Cancer Diagnosis on the Problem List?: No Quality: Stroke Does the patient have a stroke diagnosis?: No Physical Exam Vital Signs: Vital Signs: Last Vital Signs Temp 97.2 F 04/25/24 07:41 Pulse 74 04/25/24 07:41 Resp 20 04/25/24 07:41 BP 120/68 04/25/24 07:41 Pulse Ox 100 04/25/24 07:41 O2 Del Method Room Air 04/25/24 07:41 BMI result Body Mass Index 20.6 Gen: in no acute distress HEENT: sclera anicteric, moist mucus membranes Neck: supple Lungs: clear to auscultation bilaterally Heart: regular rate and rhythm, no murmurs Abd: soft, non-tender, non-distended Ext: no edema Skin: warm/well-perfused Neuro: alert and oriented x3, no focal findings Psych: appropriate affect DS: Data Data Completed and Pending Completed studies during hospitalization [Text1]: Laboratory Results WBC 6.5 X10*3/uL (4.8-10.8) 04/23/24 07:11 RBC 4.10 X10*6/uL (4.60-5.80) L 04/23/24 07:11 Hgb 13.7 g/dl (14.0-18.0) L 04/23/24 07:11 Hct 39.5 % (42.0-52.0) L 04/23/24 07:11 MCV 96.3 fL (80.0-98.0) 04/23/24 07:11 MCH 33.4 pg (27.0-33.0) H 04/23/24 07:11 MCHC 34.7 g/dl (31.0-36.0) 04/23/24 07:11 RDW 13.2 % (11.0-16.0) 04/23/24 07:11 Plt Count 254 X10*3/uL (160-400) 04/23/24 07:11 MPV 10.3 fL (9.4-12.4) 04/23/24 07:11 Immature Gran % (Auto) 0.6 % (0.0-0.4) H 04/22/24 06:35 Neut % (Auto) 76.6 % (45-73) H 04/22/24 06:35 Lymph % (Auto) 14.4 % (20-40) L 04/22/24 06:35 [facility] % (Auto) 5.7 % (2-11) 04/22/24 06:35 Eos % (Auto) 0.2 % (0-4) 04/22/24 06:35 Baso % (Auto) 2.5 % (0-2) H 04/22/24 06:35 Lymph # (Auto) 0.7 X10*3/uL (1.2-4.9) L 04/22/24 06:35 [facility] # (Auto) 0.3 X10*3/uL (0.1-1.2) 04/22/24 06:35 Eos # (Auto) 0.0 X10*3/uL (0.0-0.4) 04/22/24 06:35 Baso # (Auto) 0.1 X10*3/uL (0.0-0.2) 04/22/24 06:35 Abs Immat Gran (auto) 0.03 X10*3/uL (0.00-0.03) 04/22/24 06:35 Absolute Neuts (auto) 3.6 x10*3/uL (2.0-8.3) 04/22/24 06:35 Absolute Nucleated RBC 0.000 X10*3/uL (0.0-0.012) 04/23/24 07:11 Nucleated RBC % (auto) 0.0 /100WBC (0.0-0.2) 04/23/24 07:11 Sodium 136 mmol/L (135-145) 04/23/24 07:11 Potassium 4.2 mmol/L (3.3-5.1) 04/23/24 07:11 Chloride 99 mmol/L (96-108) 04/23/24 07:11 Carbon Dioxide 27 mmol/L (22-29) 04/23/24 07:11 Anion Gap 14 (12-20) 04/23/24 07:11 BUN 5 mg/dL (9-16) L 04/23/24 07:11 Creatinine 0.63 mg/dL (0.5-1.4) 04/23/24 07:11 Estim Creat Clear Calc 146.3 04/23/24 07:11 Estimated GFR > 60 04/23/24 07:11 Random Glucose 86 mg/dL (60-115) 04/23/24 07:11 Calcium 9.0 mg/dL (8.4-10.2) 04/23/24 07:11 Magnesium 1.9 mg/dL (1.6-2.6) 04/23/24 07:11 Total Bilirubin 0.8 mg/dL (0.0-1.0) 04/23/24 07:11 AST 54 U/L (5-37) H 04/23/24 07:11 ALT 26 U/L (0-40) 04/23/24 07:11 Alkaline Phosphatase 65 U/L (39-117) 04/23/24 07:11 Troponin I High Sens < 2.7 ng/L (<3.5-35.0) 04/22/24 06:38 Total Protein 6.3 g/dL (6.5-8.0) L 04/23/24 07:11 Albumin 3.9 g/dL (3.5-5.0) 04/23/24 07:11 Urine Opiates Screen Not Detected (Not Detect) 04/22/24 07:16 Ur Buprenorphine Scrn Not Detected ng/mL (Not Detect) 04/22/24 07:16 Ur Oxycodone Screen Not Detected ng/mL (Not Detect) 04/22/24 07:16 Urine Methadone Screen Not Detected ng/mL (Not Detect) 04/22/24 07:16 Urine Fentanyl Screen Not Detected (Not Detect) 04/22/24 07:16 Ur Barbiturates Screen Not Detected (Not Detect) 04/22/24 07:16 Ur Phencyclidine Scrn Not Detected (Not Detect) 04/22/24 07:16 Ur Amphetamines Screen Not Detected (Not Detect) 04/22/24 07:16 U Benzodiazepines Scrn Not Detected (Not Detect) 04/22/24 07:16 Urine Cocaine Screen Not Detected (Not Detect) 04/22/24 07:16 U Marijuana (THC) Screen Not Detected (Not Detect) 04/22/24 07:16 Ethyl Alcohol 139 mg/dL 04/22/24 06:38 Discharge Plan Discharge Anticipated Discharge Date/Time: 04/25/24 09:36 Patient Disposition: Home, Self-Care Discharge Diagnosis: alcohol withdrawal Referrals: Physician,None [Primary Care Provider] - 1 Week Discharge Medications: New mirtazapine 7.5 mg tablet 7.5 mg PO BEDTIME Qty: 30 0RF naltrexone 50 mg tablet 50 mg PO DAILY Qty: 30 0RF multivitamin [Daily-Lena] Tablet 1 tab PO DAILY Qty: 30 0RF nicotine 14 mg/24 hr Patch 24 Hour 14 mg transdermal DAILY Qty: 28 0RF folic acid 1 mg Tablet 1 mg PO DAILY Qty: 30 0RF thiamine mononitrate (vit B1) 100 mg Tablet 100 mg PO DAILY Qty: 30 0RF Continued Excedrin Migraine 250-250-65 mg Tablet 1 tab PO DAILY PRN (Reason: Migraine Headache) Discharge Orders: Discharge Order (Routine); Ordered 04/25/24 Ordered By: Carissa Wolff Diet: Advance to usual diet Activity on Discharge: As tolerated Stand Alone Forms: Patient Portal Discharge page Print Language: Slovak Care Plan Goals: sobriety Health Concerns: alcohol withdrawal Plan of Treatment: take naltrexone as prescribed take mirtazapine as prescribed take vitamins as prescribed quit smoking follow up with Mimi Rosado at [facility] 05/01/24 at 4 pm [address] [facility] [address], [phone] establish primary care as soon as possible Assessment: See Discharge Summary.
--- NOTE | 2024-04-25 10:35 | MHC.CM.PN ---
pt dcd home self care
== END 2024-04-25 10:59 | disposition home or self-care (01) | DRG 775 ==
LOC: HO.ED 07:19 → HO.EDOVER 09:46 → HO.IMC 13:23 → HO.EDOVER 13:26 → HO.IMC 15:14 → HO.S3 04-24 19:24
PROVIDERS: Physician Assistant; Admitting Provider Family Medicine; Emergency Provider Emergency Medicine Emergency Medical Services; Visit Provider Family Medicine
DX: F10.239 Alcohol dependence with withdrawal, unspecified (principal); F17.210 Nicotine dependence, cigarettes, uncomplicated; Y90.6 Blood alcohol level of 120-199 mg/100 ml; Z71.6 Tobacco abuse counseling; Z71.41 Alcohol abuse counseling and surveillance of alcoholic; Z79.899 Other long term (current) drug therapy
CPT/HCPCS: 36415; 80053; 80307; 83735; 84484; 85025; 85027; 93005; 99285; J2250; J2560; J7120

== ENCOUNTER → 2024-04-22 07:15 | Outpatient (BNV) | payer BC, SELFPAY | PROVIDERS: Admitting Provider Family Medicine; Emergency Provider Emergency Medicine Emergency Medical Services; Visit Provider Internal Medicine | DX: R00.0 Tachycardia, unspecified (principal) | CPT/HCPCS: 93010 ==

== ENCOUNTER → 2024-04-22 09:42 | Outpatient (BNV) | payer BC, SELFPAY | PROVIDERS: Admitting Provider Family Medicine; Emergency Provider Emergency Medicine Emergency Medical Services; Visit Provider Nurse Practitioner Psychiatric/Mental Health | DX: F10.20 Alcohol dependence, uncomplicated (principal) | CPT/HCPCS: 99222 ==

== ENCOUNTER → 2024-04-22 09:42 | Outpatient (BNV) | payer BC, SELFPAY | PROVIDERS: Admitting Provider Family Medicine; Emergency Provider Emergency Medicine Emergency Medical Services; Visit Provider Family Medicine | DX: F10.939 Alcohol use, unspecified with withdrawal, unspecified (principal) | CPT/HCPCS: 99223; 99232; 99239 ==

== ENCOUNTER 2024-04-28 15:37 | Outpatient (AMB) | payer BC, SELFPAY ==
--- NOTE | 2024-04-28 15:38 | MHC.AM.SUB ---
Intake Visit Reasons: MAT Tele Allergies No Known Allergies [No Known Allergies*] Allergy (Verified 04/22/24 05:51) [facility] HPI MAT Tele: Details: Patient presents for intake and continuation of treatment Seen by this underwriter solicitation director during recent medical admission for alcohol withdrawal Full history and notes reviewed in EMR He was started on mirtazipine and naltrexone during hospital stay and is tolerating both Back to work. Spending time with family and gardening ACS note copied below: Date of Service: 04/24/2024 Chief Complaint: alcohol withdrawal Reason for Consult: alcohol use disorder Sources of Information: patient interviewed and chart reviewed HPI Narrative: Patient is a 38 year old male medically admitted with alcohol withdrawal. Seen by promotions team leader during admission and verbalized desire to restart medication for AUD. Substance use and treatment History: -started drinking at age 18 -around age 30 drinking progressed from socially to daily -drinks both beer and hard liquor (at least ten beers daily and numerous shots of whiskey) -denies any other substance use -denies any history of formal treatment --was at [facility] 2 years ago for alcohol withdrawal, and started naltrexone but no provider follow up -no history of mutual aid groups, IOP, recovery coaching, etc -tolerated naltrexone-and abstained from alcohol for about a month while on it -strong family history of AUD Denies any BH treatment history, but reporting significant anxiety and depressive sx, including racing thoughts, poor sleep, poor appetite Strong family supports from mother, brother and girlfriend fast food services manager job [employer] Medical History (Updated 05/03/24 @ 00:02 by Amy Reddy) Tobacco abuse Alcohol use disorder Social History Alcohol intake: current Alcohol intake frequency: 3 or more drinks per day Alcohol type: beer and hard liquor Patient Tobacco Use Status: Current everyday Tobacco user Tobacco use type: Cigarette e-Cigarette/Vaping Use: Currently Using service: No Review of Systems Const Reports as per [facility] Telehealth Telehealth Telehealth Platform: Telephone Location of provider rendering services: other Location of patient: address on file Patient Identification confirmed using: Name, : Yes Telehealth method: voice only Patient verbally consented to treatment: Yes Patient verbally consented to billing insurance company: Yes Minutes spent on Phone/Video with Pt.: 35 Assessment & Plan Assessment & Plan (1) Alcohol use disorder, severe, dependence: Code(s): F10.20 - Alcohol dependence, uncomplicated Category: Medical Plan: continue naltrexone and mirtazipine follow up one week via telelhealth
== END 2024-04-28 15:52 | disposition home or self-care (01) ==
PROVIDERS: Visit Provider Nurse Practitioner Psychiatric/Mental Health
DX: F10.20 Alcohol dependence, uncomplicated (principal)
CPT/HCPCS: 98968; 99443

== ENCOUNTER → 2024-04-28 15:37 | Outpatient (BNVA) | payer BC, SELFPAY | PROVIDERS: Visit Provider Nurse Practitioner Psychiatric/Mental Health ==

== ENCOUNTER → 2024-05-05 16:05 | Outpatient (BNVA) | payer BC, SELFPAY | PROVIDERS: Visit Provider Nurse Practitioner Psychiatric/Mental Health ==

== ENCOUNTER 2024-06-17 15:44 | Outpatient (AMB) | payer BC, SELFPAY ==
--- NOTE | 2024-06-17 16:00 | A.OFFVISCC_ITS ---
Intake Visit Reasons: Vivitrol Injection Allergies No Known Allergies [No Known Allergies*] Allergy (Verified 04/22/24 05:51) HPI HPI Vivitrol Injection: Details: Patient presents for follow up and 1st Vivitrol injection Reports that he did not drink any alcohol for 1.5 months following hospital discharge He states that he has not been drinking near the amount he was prior to hospitalization Reporting 6 drinks per week Still working night time nanny Questions answered related to injection [facility] Medical History (Updated 05/03/24 @ 00:02 by Amy Reddy) Tobacco abuse Alcohol use disorder Social History Alcohol intake: current Alcohol intake frequency: 3 or more drinks per day Alcohol type: beer and hard liquor Patient Tobacco Use Status: Current everyday Tobacco user Tobacco use type: Cigarette e-Cigarette/Vaping Use: Currently Using service: No Review of Systems Const Reports as per HPI and Reports no additional complaints Physical Exam Const General: cooperative, healthy appearing, no acute distress and well groomed Nutritional Appearance: average body habitus Office Meds Vivitrol 380 mg intramuscular suspension,extended release Performing Provider: Mimi Rosado CNP Performing Location: [facility] Administered by: Nohemy Verdugo RN on 06/18/24 09:00 Dose Route Admin Location Dispensed Lot Number Expiration Date [facility] Microbiology Lab Manager 380 mg IM LG 380 mg 2024-1001T 09/10/26 92102-678-32 [email or web address] Assessment & Plan Assessment & Plan (1) Alcohol use disorder, severe, dependence: Code(s): F10.20 - Alcohol dependence, uncomplicated Category: Medical Plan: * tolerated injection * risk reduction discussion * follow up 4 weeks Orders: Orders AMB Naltrexone Injection Patient Supplied (NC) 06/17/24 F10.20 - Alcohol dependence, uncomplicated Nursing Note Patient Presents for his first vivitrol Injection. Current Dose is 380mg/vial . Given in the LG with no noted or stated complication. Education regarding injection site, and symptoms to look for were given and verbal teach back method used. Met with Provider for check in as well. Will follow up with RN in 4 weeks for injection. Will need to see provider for check next visit as well .
== END 2024-06-17 16:13 | disposition home or self-care (01) ==
DX: F10.20 Alcohol dependence, uncomplicated (principal)
CPT/HCPCS: 99213

== ENCOUNTER → 2024-06-17 15:44 | Outpatient (BNVA) | payer BC, SELFPAY | DX: F10.20 Alcohol dependence, uncomplicated (principal) | CPT/HCPCS: 96372; J2315 ==

== ENCOUNTER 2024-07-15 15:46 | Outpatient (AMB) | payer BC, SELFPAY ==
--- NOTE | 2024-07-15 16:12 | MHC.AM.SUB ---
Intake Visit Reasons: MAT/Vivitrol Injection Allergies No Known Allergies [No Known Allergies*] Allergy (Verified 04/22/24 05:51) HPI HPI MAT/Vivitrol Injection: Details: Patient presents for follow up and vivitrol injection Tolerated previous injection He felt it was effective, however did note that towards the end of the month he noted an increase in cravings Reports drinking 3 days per week at most 2-3 beers Denies any challenges with work or family slight tremor noted during interview--patient states that he does not notice it PFS Medical History (Updated 07/15/24 @ 16:18 by Mimi Rosado CNP) Tobacco abuse Alcohol use disorder Social History Alcohol intake: current Alcohol intake frequency: 3 or more drinks per day Alcohol type: beer and hard liquor Patient Tobacco Use Status: Current everyday Tobacco user Tobacco use type: Cigarette e-Cigarette/Vaping Use: Currently Using service: No Review of Systems Const Reports as per HPI Physical Exam Const General: cooperative, healthy appearing, no acute distress and well groomed Nutritional Appearance: average body habitus Office Meds Vivitrol 380 mg intramuscular suspension,extended release Performing Provider: Mimi Rosado CNP Performing Location: [facility] Administered by: Nohemy Verdugo RN on 07/23/24 11:41 Dose Route Admin Location Dispensed Lot Number Expiration Date [facility] Embroidery Supervisor 380 mg IM rg 380 mg 2024-3005t 12/11/26 99628-890-48 [employer] Assessment & Plan Assessment & Plan (1) Alcohol use disorder, severe, dependence: Code(s): F10.20 - Alcohol dependence, uncomplicated Category: Medical Plan: tolerated injection follow up 4 weeks lab work ordered Orders: Orders AMB Naltrexone Injection Patient Supplied (NC) 07/15/24 F10.20 - Alcohol dependence, uncomplicated Liver Panel 07/15/24 Z79.899 - Other long term care administrator (current) drug therapy Medications: New Vivitrol ER (naltrexone microspheres) 380 mg IM ONCE 1 ea 0RF NS F10.20 - Alcohol dependence, uncomplicated Refilled mirtazapine 7.5 mg PO BEDTIME 90 tabs 0RF naltrexone 50 mg PO DAILY 30 tabs 0RF
== END 2024-07-15 16:37 | disposition home or self-care (01) ==
PROVIDERS: Visit Provider Nurse Practitioner Psychiatric/Mental Health
DX: F10.20 Alcohol dependence, uncomplicated (principal)
CPT/HCPCS: 99213

== ENCOUNTER → 2024-07-15 15:46 | Outpatient (BNVA) | payer BC, SELFPAY | PROVIDERS: Visit Provider Nurse Practitioner Psychiatric/Mental Health | DX: F10.20 Alcohol dependence, uncomplicated (principal) | CPT/HCPCS: 96372; J2315 ==

== ENCOUNTER 2024-08-14 10:56 | Outpatient (REF) | payer BC, SELFPAY ==
[2024-08-14 13:21] LABS: Alanine Aminotransferase 47 U/L (0-40); Albumin Level 5.3 g/dL (3.5-5.0); Alkaline Phosphatase 90 U/L (39-117); Aspartate Amino Transferase 46 U/L (5-37); Bilirubin Direct 0.2 mg/dL (0.0-0.5); Bilirubin Total 0.3 mg/dL (0.0-1.0); Total Protein 8.5 g/dL (6.5-8.0)
== END 2024-08-14 10:57 | disposition home or self-care (01) ==
LOC: HO.LAB 10:56
PROVIDERS: Referring Provider Nurse Practitioner Psychiatric/Mental Health
DX: F10.20 Alcohol dependence, uncomplicated (principal); Z79.899 Other long term (current) drug therapy
CPT/HCPCS: 36415; 80076; 96372; J2315

== ENCOUNTER 2024-08-14 10:56 | Outpatient (AMB) | payer BC, SELFPAY ==
--- NOTE | 2024-08-14 11:02 | AM.OFFVISNUR ---
Intake Visit Reasons: Vivitrol Injection Allergies No Known Allergies [No Known Allergies*] Allergy (Verified 04/22/24 05:51) Nursing Note Patient Presents for vivitrol Injection. Current Dose 380mg/vial . Given in LG the with no noted or stated complication. Denies any issues with previous injection. Denies symptoms, and denies any break through cravings. Last appt with provider was 2 months ago , will follow up with RN in 4 weeks for injection. Will need to see provider for check in October . Office Meds Vivitrol 380 mg intramuscular suspension,extended release Performing Provider: Mimi Rosado CNP Performing Location: [facility] Administered by: Nohemy Verdugo RN on 08/14/24 13:50 Dose Route Admin Location Dispensed Lot Number Expiration Date [facility] [address] Driver 380 mg IM LG 380 mg 2024-1018T 12/11/26 95515-768-99 [employer] Assessment & Plan Assessment & Plan Orders: Orders AMB Naltrexone Injection Patient Supplied (NC) Today F10.20 - Alcohol dependence, uncomplicated Medications: New Vivitrol ER (naltrexone microspheres) 380 mg IM ONCE 1 ea 0RF NS F10.20 - Alcohol dependence, uncomplicated
== END 2024-08-14 11:31 | disposition home or self-care (01) ==
DX: F10.20 Alcohol dependence, uncomplicated (principal)

== ENCOUNTER 2024-09-11 11:03 | Outpatient (AMB) | payer BC, SELFPAY ==
--- NOTE | 2024-09-11 11:06 | AM.OFFVISNUR ---
Intake Visit Reasons: Vivitrol Injection Allergies No Known Allergies [No Known Allergies*] Allergy (Verified 04/22/24 05:51) Office Meds Vivitrol 380 mg intramuscular suspension,extended release Performing Provider: Mimi Rosado CNP Performing Location: [facility] Administered by: Nohemy Verdugo RN on 09/15/24 14:11 Dose Route Admin Location Dispensed Lot Number Expiration Date [facility] Pre Sales Technical Engineer 380 mg IM LG 380 mg 2024-1026T 04/10/27 09444-795-93 [employer] Assessment & Plan Assessment & Plan Orders: Orders AMB Naltrexone Injection Patient Supplied (NC) 09/11/24 F10.20 - Alcohol dependence, uncomplicated Medications: New Vivitrol ER (naltrexone microspheres) 380 mg IM ONCE 1 ea 0RF NS F10.20 - Alcohol dependence, uncomplicated
== END 2024-09-11 11:44 | disposition home or self-care (01) ==
LOC: HO.HCC 11:04
DX: F10.20 Alcohol dependence, uncomplicated (principal)

== ENCOUNTER → 2024-09-11 11:03 | Outpatient (BNVA) | payer BC, SELFPAY | DX: F10.20 Alcohol dependence, uncomplicated (principal) | CPT/HCPCS: 96372; J2315 ==

== ENCOUNTER 2024-10-16 09:44 | Outpatient (AMB) | payer BC, SELFPAY ==
--- NOTE | 2024-10-16 09:56 | AM.OFFVISNUR ---
Intake Visit Reasons: Vivitrol Injection Allergies No Known Allergies [No Known Allergies*] Allergy (Verified 04/22/24 05:51) Nursing Note Patient Presents for vivitrol Injection. Current Dose 380mg . Given in the with RG no noted or stated complications. Denies any issues with previous injection. Denies symptoms, and denies any break through cravings. Last appt with provider was , will follow up with RN in 4 weeks for injection. Office Meds Vivitrol 380 mg intramuscular suspension,extended release Performing Provider: Mimi Rosado CNP Performing Location: [facility] Administered by: Nohemy Verdugo RN on 10/16/24 09:58 Dose Route Admin Location Dispensed Lot Number Expiration Date [facility] Wagon Winder 380 mg IM RG 380 mg 2024-1031T 05/10/27 37190-311-77 [employer] Assessment & Plan Assessment & Plan Orders: Orders AMB Naltrexone Injection Patient Supplied (NC) Today F10.20 - Alcohol dependence, uncomplicated
== END 2024-10-16 10:32 | disposition home or self-care (01) ==
DX: F10.20 Alcohol dependence, uncomplicated (principal)

== ENCOUNTER → 2024-10-16 09:44 | Outpatient (BNVA) | payer BC, SELFPAY | DX: F10.20 Alcohol dependence, uncomplicated (principal) | CPT/HCPCS: 96372; J2315 ==

== ENCOUNTER 2024-11-16 16:18 | Outpatient (AMB) | payer BC, SELFPAY ==
--- NOTE | 2024-11-16 16:22 | A.OFFVISCC_ITS ---
Intake Visit Reasons: MAT/Vivitrol Injection Allergies No Known Allergies [No Known Allergies*] Allergy (Verified 04/22/24 05:51) Medication List - Last Reconciled 11/16/24 by Mimi Rosado CNP [id number] 250-250-65 mg (Excedrin Migraine) 1 tab PO DAILY PRN mirtazapine 7.5 mg PO BEDTIME multivitamin (Daily-Lena tablet) 1 tab PO DAILY naltrexone 50 mg PO DAILY naltrexone microspheres ER (Vivitrol) 380 mg IM Q4W HPI HPI MAT/Vivitrol Injection: Details: Patient presents for AUD treatment follow up Scheduled for vivitrol injection - Drinking on the weekend 3-4 beers mood okay not taking mirtazipine approx 4 nights per week needs to schedule PCP appt Office Meds Vivitrol 380 mg intramuscular suspension,extended release Performing Provider: Mimi Rosado CNP Performing Location: [facility] Administered by: Jaclyn Roberts RN on 11/16/24 16:49 Dose Route Admin Location Dispensed Lot Number Expiration Date [facility] Telemetry Registered Nurse 380 mg IM LG 380 mg 2024-1042T 07/11/27 [id number] [employer] Comments: Pt here for 4 week AUD check in and Vivitrol Injection. Pt reports no issue with past injection and reports doing well in recovery. No issues with current injection, pt educated on signs and symptoms of infection and urged to call the [facility] with any questions or concerns. Pt met with provider this visit. Assessment & Plan Assessment & Plan (1) Alcohol use disorder, severe, dependence: Code(s): F10.20 - Alcohol dependence, uncomplicated Category: Medical Orders: Orders Liver Panel Today F10.20 - Alcohol dependence, uncomplicated AMB Naltrexone Injection Patient Supplied (NC) Today F10.20 - Alcohol dependence, uncomplicated Medications: New Vivitrol ER (naltrexone microspheres) 380 mg IM ONCE 1 ea 0RF NS F10.20 - Alcohol dependence, uncomplicated [facility] Medical History (Updated 07/15/24 @ 16:18 by Mimi Rosado CNP) Tobacco abuse Alcohol use disorder Social History Alcohol intake: current Alcohol intake frequency: 3 or more drinks per day Alcohol type: beer and hard liquor Patient Tobacco Use Status: Current everyday Tobacco user Tobacco use type: Cigarette e-Cigarette/Vaping Use: Currently Using service: No
[2024-11-16 16:55] VITALS: BP 122/82; PULSE 96; O2SAT 98
--- NOTE | 2024-11-16 16:55 | AM.OFFVISNUR ---
Vital Signs 11/16/24 16:55 BP 122/82 Blood Pressure Location Rt brachial Pulse 96 Pulse Source Pulse Oximeter Pulse Oximetry (%) 98 Oxygen Delivery Method Room Air Intake Visit Reasons: MAT/Vivitrol Injection Allergies No Known Allergies [No Known Allergies*] Allergy (Verified 04/22/24 05:51) Medication List - Last Reconciled 11/16/24 by Mimi Rosado CNP [id number]-[id number] 250-250-65 mg (Excedrin Migraine) 1 tab PO DAILY PRN mirtazapine 7.5 mg PO BEDTIME multivitamin (Daily-Lena tablet) 1 tab PO DAILY naltrexone 50 mg PO DAILY naltrexone microspheres ER (Vivitrol) 380 mg IM Q4W Office Meds Vivitrol 380 mg intramuscular suspension,extended release Performing Provider: Mimi Rosado CNP Performing Location: [facility] Administered by: Jaclyn Roberts RN on 11/16/24 16:49 Dose Route Admin Location Dispensed Lot Number Expiration Date [facility] Shoe Stainer 380 mg IM LG 380 mg 2024-1042T 07/11/27 32750-405-79 [employer] Comments: Pt here for 4 week AUD check in and Vivitrol Injection. Pt reports no issue with past injection and reports doing well in recovery. No issues with current injection, pt educated on signs and symptoms of infection and urged to call the [facility] with any questions or concerns. Pt met with provider this visit. Assessment & Plan Assessment & Plan (1) Alcohol use disorder, severe, dependence: Code(s): F10.20 - Alcohol dependence, uncomplicated Category: Medical Orders: Orders Liver Panel Today F10.20 - Alcohol dependence, uncomplicated AMB Naltrexone Injection Patient Supplied (NC) Today F10.20 - Alcohol dependence, uncomplicated
== END 2024-11-16 16:48 | disposition home or self-care (01) ==
DX: F10.20 Alcohol dependence, uncomplicated (principal)

== ENCOUNTER → 2024-11-16 16:18 | Outpatient (BNVA) | payer BC, SELFPAY | DX: F10.20 Alcohol dependence, uncomplicated (principal) | CPT/HCPCS: 96372; J2315 ==

== ENCOUNTER 2024-12-17 15:58 | Outpatient (REF) | payer BC, SELFPAY ==
[2024-12-17 16:58] LABS: Alanine Aminotransferase 37 U/L (0-40); Albumin Level 4.8 g/dL (3.5-5.0); Alkaline Phosphatase 82 U/L (39-117); Aspartate Amino Transferase 42 U/L (5-37); Bilirubin Direct 0.2 mg/dL (0.0-0.5); Bilirubin Total 0.4 mg/dL (0.0-1.0); Total Protein 8.3 g/dL (6.5-8.0)
== END 2024-12-17 15:59 | disposition home or self-care (01) ==
LOC: HO.LAB 15:58
PROVIDERS: Nurse Practitioner Psychiatric/Mental Health
DX: F10.20 Alcohol dependence, uncomplicated (principal); Z79.899 Other long term (current) drug therapy
CPT/HCPCS: 36415; 80076; 96372; J2315

== ENCOUNTER 2025-01-12 15:45 | Outpatient (AMB) | payer BC, SELFPAY ==
[2025-01-12 16:00] VITALS: BP 140/60; RESP 19; O2SAT 98
--- NOTE | 2025-01-13 08:46 | AM.OFFVISNUR ---
Vital Signs 01/12/25 16:00 BP 140/60 H Blood Pressure Location Lt brachial Position Sitting Respiration 19 Pulse Oximetry (%) 98 Intake Visit Reasons: Vivitrol Injection Allergies No Known Allergies [No Known Allergies*] Allergy (Verified 04/22/24 05:51) Nursing Note Patient Presents for vivitrol Injection on 01/12/25. Given in the LG with no noted or stated complications. Denies any issues with previous injection. Denies symptoms, and denies any break through cravings. Office Meds Vivitrol 380 mg intramuscular suspension,extended release Performing Provider: Mimi Rosado CNP Performing Location: [facility] Administered by: Nohemy Verdugo RN on 01/13/25 09:06 Dose Route Admin Location Dispensed Lot Number Expiration Date [facility] Die Repairer Stamping 380 mg IM LG 380 mg 2024-3013T 07/11/27 95412-792-74 [employer] medical Assessment & Plan Assessment & Plan Orders: Orders AMB Naltrexone Injection Patient Supplied (NC) 01/12/25 F10.20 - Alcohol dependence, uncomplicated Medications: New Vivitrol ER (naltrexone microspheres) 380 mg IM ONCE 1 ea 0RF NS F10.20 - Alcohol dependence, uncomplicated Coding
== END 2025-01-12 16:12 | disposition home or self-care (01) ==
DX: F10.20 Alcohol dependence, uncomplicated (principal)

== ENCOUNTER → 2025-01-12 15:45 | Outpatient (BNVA) | payer BC, SELFPAY | DX: F10.20 Alcohol dependence, uncomplicated (principal) | CPT/HCPCS: 96372; J2315 ==

== ENCOUNTER 2025-02-12 08:52 | Outpatient (AMB) | payer BC, SELFPAY ==
[2025-02-12 09:20] VITALS: BP 110/62
--- NOTE | 2025-02-12 09:20 | AM.OFFVISNUR ---
Vital Signs 02/12/25 09:20 BP 110/62 Blood Pressure Location Rt brachial Position Sitting Intake Visit Reasons: Injection Allergies No Known Allergies [No Known Allergies*] Allergy (Verified 04/22/24 05:51) Nursing Note Patient Presents for vivitrol Injection. Current Dose 380mg . Given in the with RG with no noted or stated complications. Denies any issues with previous injection. Denies symptoms, and denies any break through cravings. Will follow up with RN in 4 weeks for injection. Will need to see provider for check in March/April . Office Meds Vivitrol 380 mg intramuscular suspension,extended release Performing Provider: Mimi Rosado CNP Performing Location: [facility] Administered by: Nohemy Verdugo RN on 02/12/25 09:22 Dose Route Admin Location Dispensed Lot Number Expiration Date [facility] Director Quality Systems 380 mg IM LG 380 mg 2024-1060T 09/11/27 [id number] [employer] Assessment & Plan Assessment & Plan Orders: Orders AMB Naltrexone Injection Patient Supplied (NC) Today F10.20 - Alcohol dependence, uncomplicated Medications: New Vivitrol ER (naltrexone microspheres) 380 mg IM ONCE 1 ea 0RF NS F10.20 - Alcohol dependence, uncomplicated Coding
== END 2025-02-12 09:26 | disposition home or self-care (01) ==
LOC: HO.HCC 08:52
DX: F10.20 Alcohol dependence, uncomplicated (principal)

== ENCOUNTER → 2025-02-12 08:52 | Outpatient (BNVA) | payer BC, SELFPAY | DX: F10.20 Alcohol dependence, uncomplicated (principal) | CPT/HCPCS: 96372; J2315 ==

== ENCOUNTER 2025-03-19 13:04 | Outpatient (AMB) | payer BC, SELFPAY ==
--- NOTE | 2025-03-19 13:03 | A.OFFVIS_ITS ---
Intake Visit Reasons: MAT Allergies No Known Allergies [No Known Allergies*] Allergy (Verified 03/19/25 13:04) HPI HPI MAT: Details: He is doing well with Vivitrol [facility] Medical History Tobacco abuse Alcohol use disorder Social History Alcohol intake: current Alcohol intake frequency: 3 or more drinks per day Alcohol type: beer and hard liquor Patient Tobacco Use Status: Current everyday Tobacco user Tobacco use type: Cigarette e-Cigarette/Vaping Use: Currently Using service: No Review of Systems Const All systems reviewed & are unremarkable except as noted in HPI and below Physical Exam Const General: cooperative Office Meds Vivitrol 380 mg intramuscular suspension,extended release Performing Provider: Jayde Page MD Performing Location: [facility] Administered by: Jayde Page MD on 03/19/25 14:28 Dose Route Admin Location Dispensed Lot Number Expiration Date [facility] Shoe Lay Out Planner 380 mg IM left buttock 380 mg 2024-1061T 09/10/27 90493-892-05 [employer] Assessment & Plan Assessment & Plan (1) Alcohol use disorder, severe, dependence: Comment: He drinks 3-4 drinks a week but no more than that,Vivitrol helps Code(s): F10.20 - Alcohol dependence, uncomplicated Category: Medical Plan: Continue Vivitrol See next month. Orders: Orders AMB Naltrexone Injection - Practice Supplied 03/19/25 F10.20 - Alcohol dependence, uncomplicated Coding Level of Care Code Est Pt Level 3 (02958) Diagnoses Alcohol use disorder, severe, dependence F10.20
== END 2025-03-19 13:54 | disposition home or self-care (01) ==
LOC: HO.HCC 13:04
PROVIDERS: Visit Provider Internal Medicine
DX: F10.20 Alcohol dependence, uncomplicated (principal)
CPT/HCPCS: 99213

== ENCOUNTER → 2025-03-19 13:04 | Outpatient (BNVA) | payer BC, SELFPAY | PROVIDERS: Visit Provider Internal Medicine | DX: F10.20 Alcohol dependence, uncomplicated (principal) | CPT/HCPCS: 96372; J2315 ==

== ENCOUNTER 2025-04-19 15:19 | Outpatient (AMB) | payer BC, SELFPAY ==
[2025-04-19 15:20] VITALS: PULSE 111; O2SAT 99
--- NOTE | 2025-04-19 15:20 | MHC.OFFVIS ---
Vital Signs 04/19/25 15:20 Pulse 111 H Pulse Source Pulse Oximeter Pulse Oximetry (%) 99 Oxygen Delivery Method Room Air Intake Visit Reasons: MAT/ Vivitrol Injection Allergies No Known Allergies [No Known Allergies*] Allergy (Verified 04/19/25 15:32) PFSH Medical History Tobacco abuse Alcohol use disorder Social History Alcohol intake: current Alcohol intake frequency: 3 or more drinks per day Alcohol type: beer and hard liquor Patient Tobacco Use Status: Current everyday Tobacco user Tobacco use type: Cigarette e-Cigarette/Vaping Use: Currently Using service: No Physical Exam Vital Signs: Last Vital Signs Pulse 111 H 04/19/25 15:20 Pulse Ox 99 04/19/25 15:20 Oxygen Delivery Method Room Air 04/19/25 15:20 Office Meds Vivitrol 380 mg intramuscular suspension,extended release Performing Provider: Jayde Page MD Performing Location: [facility] Administered by: Jayde Page MD on 04/19/25 17:15 Dose Route Admin Location Dispensed Lot Number Expiration Date [facility] Surgical Instrument Maker 380 mg IM right buttock 380 mg 2025-3002T 02/08/27 08448-886-08 [employer] Assessment & Plan Assessment & Plan Orders: Orders AMB Naltrexone Injection - Practice Supplied Today F10.20 - Alcohol dependence, uncomplicated Medications: New Vivitrol ER (naltrexone microspheres) 380 mg IM ONCE 1 ea 0RF NS F10.20 - Alcohol dependence, uncomplicated Coding
== END 2025-04-19 16:01 | disposition home or self-care (01) ==
LOC: HO.HCC 15:19
PROVIDERS: Visit Provider Internal Medicine
DX: F10.20 Alcohol dependence, uncomplicated (principal)

== ENCOUNTER → 2025-04-19 15:19 | Outpatient (BNVA) | payer BC, SELFPAY | PROVIDERS: Visit Provider Internal Medicine | DX: F10.230 Alcohol dependence with withdrawal, uncomplicated (principal) | CPT/HCPCS: 96372; J2315 ==

== ENCOUNTER 2025-05-21 10:57 | Outpatient (AMB) | payer BC, SELFPAY ==
--- NOTE | 2025-05-21 11:02 | MHC.OFFVIS ---
Vital Signs 05/21/25 11:05 Weight 143 lb BP 111/64 Blood Pressure Location Lt brachial Position Sitting Pulse 71 Pulse Source Pulse Oximeter Pulse Oximetry (%) 99 Oxygen Delivery Method Room Air Intake Visit Reasons: injection Allergies No Known Allergies (No Known Allergies*) Allergy (Verified 05/21/25 11:06) [facility] Medical History Tobacco abuse Alcohol use disorder Social History Alcohol intake: current Alcohol intake frequency: 3 or more drinks per day Alcohol type: beer and hard liquor Patient Tobacco Use Status: Current everyday Tobacco user Tobacco use type: Cigarette e-Cigarette/Vaping Use: Currently Using service: No Physical Exam Vital Signs: Last Vital Signs Pulse 71 05/21/25 11:05 BP 111/64 05/21/25 11:05 Pulse Ox 99 05/21/25 11:05 Oxygen Delivery Method Room Air 05/21/25 11:05 Office Meds Vivitrol 380 mg intramuscular suspension,extended release Performing Provider: Jayde Page MD Performing Location: [facility] Administered by: Jayde Page MD on 05/21/25 12:04 Dose Route Admin Location Dispensed Lot Number Expiration Date [facility] Brass Pourer 380 mg IM left buttock 380 mg 2024-1051T 09/10/27 74419-954-03 [employer] Total Dispensed Waste 380 mg 0 % Assessment & Plan Assessment & Plan (1) Alcohol use disorder, severe, dependence: Comment: He has not been drinking any alcohol lately Code(s): F10.20 - Alcohol dependence, uncomplicated Category: Medical Plan: na Orders: Orders AMB Naltrexone Injection Patient Supplied (NC) Today F10.20 - Alcohol dependence, uncomplicated Coding Level of Care Code Est Pt Level 3 (77700) Diagnoses Alcohol use disorder, severe, dependence F10.20
[2025-05-21 11:05] VITALS: BP 111/64; PULSE 71; O2SAT 99
--- NOTE | 2025-05-21 12:04 | MHC.AM.SUB ---
Vital Signs 05/21/25 11:05 Weight 143 lb BP 111/64 Blood Pressure Location Lt brachial Position Sitting Pulse 71 Pulse Source Pulse Oximeter Pulse Oximetry (%) 99 Oxygen Delivery Method Room Air Intake Visit Reasons: injection Allergies No Known Allergies (No Known Allergies*) Allergy (Verified 05/21/25 11:06) HPI Comments Details: He is doing well,not drinking but camping when it is not raining. He received a promotion in work and has not had much time. Review of Systems Const All systems reviewed & are unremarkable except as noted in HPI and below Physical Exam Vital Signs: Last Vital Signs Pulse 71 05/21/25 11:05 BP 111/64 05/21/25 11:05 Pulse Ox 99 05/21/25 11:05 Oxygen Delivery Method Room Air 05/21/25 11:05 Const General: cooperative Office Meds Vivitrol 380 mg intramuscular suspension,extended release Performing Provider: Jayde Page MD Performing Location: [facility] Administered by: Jayde Page MD on 05/21/25 12:04 Dose Route Admin Location Dispensed Lot Number Expiration Date [facility] College Archivist 380 mg IM left buttock 380 mg 2024-1051T 09/10/27 39899-772-46 [employer] Total Dispensed Waste 380 mg 0 % [facility] Medical History Tobacco abuse Alcohol use disorder Social History Alcohol intake: current Alcohol intake frequency: 3 or more drinks per day Alcohol type: beer and hard liquor Patient Tobacco Use Status: Current everyday Tobacco user Tobacco use type: Cigarette e-Cigarette/Vaping Use: Currently Using service: No Assessment & Plan Assessment & Plan (1) Alcohol use disorder, severe, dependence: Comment: He has not been drinking any alcohol lately Code(s): F10.20 - Alcohol dependence, uncomplicated Category: Medical Plan: Would continue current plan, Vivitrol monthly Plan See as scheduled. Orders: Orders AMB Naltrexone Injection Patient Supplied (NC) Today F10.20 - Alcohol dependence, uncomplicated
== END 2025-05-21 11:31 | disposition home or self-care (01) ==
LOC: HO.HCC 10:58
PROVIDERS: Visit Provider Internal Medicine
DX: F10.20 Alcohol dependence, uncomplicated (principal)
CPT/HCPCS: 99213

== ENCOUNTER → 2025-05-21 10:57 | Outpatient (BNVA) | payer BC, SELFPAY | PROVIDERS: Visit Provider Internal Medicine | DX: F10.20 Alcohol dependence, uncomplicated (principal) | CPT/HCPCS: 96372; J2315 ==

== ENCOUNTER 2025-06-17 15:01 | Outpatient (AMB) | payer BC, SELFPAY ==
--- OUTSIDE RECORDS SUMMARY | 2025-06-17 15:04 | XMS_ITS | Clinical Summary ---
Author Organization [facility] Address [address] [place], [place] [address] Phone Care Team Providers Care Supervisor Soakers Name Role Phone Pcp, Unknown Primary Care Provider Unavailabl e Allergies No known active allergies Medications lidocaine (LIDODERM) 5 % Place 1 patch onto the skin daily. Remove & Discard patch within 12 hours or as directed by 30 patch Active Additional Information Patient not taking.Reported on 07/07/2022 Active Problems No known active problems Immunizations No known immunizations Social History Tobacco Use Types Packs/Day Years Used Date Smoking Tobacco: Every Day Cigarettes Smokeless Tobacco: Never Tobacco Cessation:Ready to Q uit: No; Counseling Given: No Education Answer Date Recorded Are you interested in more education? Not on sonal e 03/08/2023 Are you concerned about learning? Not on file 03/08/2023 No 03/08/2023 No 03/08/2023 Digital Access Answer Date Recorded No 04/05/2023 No 04/05/2023 No 04/05/2023 Reliable internet access at home? Not on file 04/05/2023 Device with a working camera? Not on file Sex and Gender Information Value Date Recorded Sex Assigned at Not on file Legal Sex Male 9:14 PM EDT Gender Identity Not on file Sexual Orientation Not on file Last Filed Vital Signs Vital Sign Reading Time Taken Comments Blood Pressure 117/69 07/07/2022 10:44 AM EDT Pulse 78 07/07/2022 10:44 AM EDT Temperature 37.5 C (99.5 F) 07/07/2022 10:44 AM EDT Respiratory Rate 18 07/07/2022 10:44 AM EDT Oxygen Saturation 99% 07/07/2022 10:44 AM EDT Inhaled Oxygen Concentration - - Weight 68 kg (150 lb) 07/07/2022 10:44 AM EDT Height 177.8 cm (5' 10 ) 07/07/2022 10:44 AM EDT Body Mass Index 21.52 07/07/2022 10:44 AM EDT Plan of Treatment Health Maintenance Due Date Last Done Comments Adult Td,Tdap Booster 1985 LIPID PANEL 1985 DEPRESSION SCREENING 1997 SMOKING Hx and SMOKELESS TOBACCO SCREENING 1998 HEPATITIS C SCREENING 2003 HIV ONE-TIME SCREENING (18-6 5 YEARS) 2003 PNEUMOCOCCAL VACCINES (0-49 years) (1 of 2 - PCV) 2004 COVID-19 VACCINE (2023-2 5 season) 2024 01/26/2022, 03/24/2021, 03/03/2021 HEPATITIS A VACCINES Aged Out No long er eligible based on patient's age to complete this topic HIB VACCINES Aged Out No longer eligi ble based on patient's age to complete this topic MENINGOCOCCAL VACCINES (ACWY) Aged Out No longer eligible based on patient's age to complete this topic MENINGOCOCCAL VACCINES (B) Aged Out N o longer eligible based on patient's age to complete this topic Medical Devices Not on file Insurance OUT OF [facility] PPO BLUE CROSS OUT OF STATE PPO BLUE CROSS OUT OF STATE PPO BLUE CROSS OUT OF STATE PPO BLUE CROSS OUT OF STATE PPO BLUE CROSS OUT OF STATE PPO BLUE CROSS OUT OF [place] [address] [place] [address] OUT OF STATE PPO OUT OF [facility] PPO Care Teams Supervisor Soakers Relationship Specialty Start Date End Date Pcp, Unknown PCP - General 06/18/22 Additional Source Comments The information contained in this document represents components of the legal health record. It is not the complete legal health record.[facility]
--- NOTE | 2025-06-17 15:10 | AM.OFFVISNUR ---
Vital Signs 06/17/25 15:16 Weight 67.132 kg BP 110/66 Pulse 90 Pulse Oximetry (%) 99 Intake Visit Reasons: Injection Allergies No Known Allergies (No Known Allergies*) Allergy (Verified 06/17/25 15:16) Nursing Note Tucker presents for his four week Vivitrol injection. Tucker notes some increased craving toward the end of the four week period between injections- he was reminded that he can utilize the oral naltrexone if he felt the need to however he reports that he does not feel that this is problematic. Tucker reports doing well otherwise. Follow up in four weeks for next injection. Office Meds Vivitrol 380 mg intramuscular suspension,extended release Performing Provider: Jayde Page MD Performing Location: [facility] Administered by: Jaclyn Roberts RN on 06/17/25 15:41 Dose Route Admin Location Dispensed Lot Number Expiration Date [facility] Wrapper Stripper 380 mg IM RG 380 mg 2024-1058T 09/10/27 50528-134-12 [employer] Total Dispensed Waste 380 mg 0 % Comments: Pt is present for 4 week Vivitrol 380 mg injection. Pt denies any concern with previous injections and tolerated injection well. Educated on signs and symptoms of infection and encouraged to call [facility] with any related questions or concerns, pt verbalized understanding. Follow-up scheduled in 4 weeks for next injection. Assessment & Plan Assessment & Plan Orders: Orders AMB Naltrexone Injection Patient Supplied (NC) Today F10.20 - Alcohol dependence, uncomplicated Coding
[2025-06-17 15:16] VITALS: BP 110/66; PULSE 90; O2SAT 99
== END 2025-06-17 16:22 | disposition home or self-care (01) ==
LOC: HO.HCC 15:02
DX: F10.20 Alcohol dependence, uncomplicated (principal)

== ENCOUNTER → 2025-06-17 15:01 | Outpatient (BNVA) | payer BC, SELFPAY | DX: F10.20 Alcohol dependence, uncomplicated (principal) | CPT/HCPCS: 96372; J2315 ==

== ENCOUNTER 2025-07-15 15:41 | Outpatient (AMB) | payer BC, SELFPAY ==
[2025-07-15 16:26] VITALS: BP 122/76; PULSE 102; O2SAT 97; BMI 22.2
--- NOTE | 2025-07-15 16:26 | AM.OFFVISNUR ---
Vital Signs 07/15/25 16:26 Height 5 ft 10 in Weight 70.307 kg BMI 22.2 BP 122/76 Pulse 102 H Pulse Oximetry (%) 97 Intake Visit Reasons: Injection Allergies No Known Allergies (No Known Allergies*) Allergy (Verified 07/15/25 16:27) Nursing Note Tucker presents for his four week Vivitrol injection; he is alert, oriented, cooperative with care and presents with appropriate affect. Tucker reports better symptom management between injections and has been feeling good; working alot. Vivitrol ID walled card given.Follow up in four weeks for the next injection Office Meds Vivitrol 380 mg intramuscular suspension,extended release Performing Provider: Jayde Page MD Performing Location: [facility] Administered by: Jaclyn Roberts RN on 07/15/25 16:38 Dose Route Admin Location Dispensed Lot Number Expiration Date [place] [employer] Man 380 mg IM LG 380 mg 2025-1014T 11/10/27 28250-748-33 [employer] Total Dispensed Waste 380 mg 0 % Comments: Pt is present for the Vivitrol 380 mg injection. Pt has been on the medication in the past; medication education provided and the injection was tolerated well. Educated on signs and symptoms of infection and encouraged to call [facility] with any related questions or concerns, pt verbalized understanding. Follow-up scheduled in 4 weeks for the next injection. Assessment & Plan Assessment & Plan Orders: Orders AMB Naltrexone Injection Patient Supplied (NC) Today F10.20 - Alcohol dependence, uncomplicated Coding
--- OUTSIDE RECORDS SUMMARY | 2025-07-15 16:31 | XMS_ITS | Clinical Summary ---
Author Organization [facility] Address [address] [place], [place] [address] Phone Care Team Providers Care Prism Inspector Name Role Phone Pcp, Unknown Primary Care [...] years) (1 of 2 - PCV) 2004 INFLUENZA VACCINE (#1) 2025 01/26/2022 COVID-19 VACCINE (2024-2 6 season) 2025 01/26/2022, 03/24/2021, 03/03/2021 HEPATITIS A VACCINES Aged [...] topic Medical Devices Not on file Insurance [facility] OUT [facility] PPO BLUE CROSS OUT OF STATE PPO BLUE CROSS OUT OF STATE PPO BLUE CROSS OUT OF STATE PPO BLUE CROSS OUT OF STATE PPO BLUE CROSS OUT OF STATE PPO BLUE CROSS OUT OF STATE PPO BLUE CROSS OUT OF STATE PPO BLUE CROSS OUT OF STATE PPO Care Teams Prism Inspector Relationship Specialty Start Date End Date Pcp, Unknown PCP - General 06/18/22 Additional Source Comments The information contained in this document represents components of the legal health record. It is not the complete legal health record.[facility]
== END 2025-07-15 16:35 | disposition home or self-care (01) ==
LOC: HO.HCC 15:41
DX: F10.20 Alcohol dependence, uncomplicated (principal)

== ENCOUNTER → 2025-07-15 15:41 | Outpatient (BNVA) | payer BC, SELFPAY | DX: F10.20 Alcohol dependence, uncomplicated (principal); Z79.899 Other long term (current) drug therapy | CPT/HCPCS: 96372; J2315 ==

== ENCOUNTER 2025-08-12 15:18 | Outpatient (AMB) | payer BC, SELFPAY ==
--- NOTE | 2025-08-12 15:23 | AM.OFFVISNUR ---
Vital Signs 08/12/25 15:27 BP 110/60 Pulse 110 H Pulse Oximetry (%) 98 Intake Visit Reasons: injection Allergies No Known Allergies (No Known Allergies*) Allergy (Verified 08/12/25 15:28) Nursing Note Tucker presents for his four week Vivitrol injection; he is alert, oriented, cooperative with care and presents with appropriate affect. Tucker reports a more regular work schedule though has to report to work much earlier. No issues with previous injection and no negative symptoms reported. Follow-up appointment in 4 weeks for next injection. Office Meds Vivitrol 380 mg intramuscular suspension,extended release Performing Provider: Jayde Page MD Performing Location: [facility] Administered by: Jaclyn Roberts RN on 08/12/25 15:47 Dose Route Admin Location Dispensed Lot Number Expiration Date [facility] Repair Miller 380 mg IM RG 380 mg 2025-1022T 01/09/28 51285-574-24 [employer] Total Dispensed Waste 380 mg 0 % Comments: Pt is present for Vivitrol injection, pt denies complications with previous injections and tolerated injection well. Pt educated on signs and symptoms of infection at the injection site, urged to call [facility] with any questions or concerns. Follow up appointment made in 4 weeks for next injection. Assessment & Plan Assessment & Plan Orders: Orders AMB Naltrexone Injection Patient Supplied (NC) Today F10.20 - Alcohol dependence, uncomplicated Medications: Discontinued naltrexone microspheres ER (Vivitrol) Discontinued Reason: Patient Completed Course 380 mg IM Q4W 1 ea 5RF Coding
[2025-08-12 15:27] VITALS: BP 110/60; PULSE 110; O2SAT 98
--- OUTSIDE RECORDS SUMMARY | 2025-08-12 16:37 | XMS_ITS | Clinical Summary ---
Author Organization [facility] Address [address] [place], [place] [id number] Phone Care Team Providers Care Fly Worker Name Role Phone Pcp, Unknown Primary Care [...] topic Medical Devices Not on file Insurance [facility] OUT [facility] PPO BLUE CROSS OUT OF STATE PPO BLUE CROSS OUT OF STATE PPO BLUE CROSS OUT OF STATE PPO BLUE CROSS OUT OF STATE PPO BLUE CROSS OUT OF STATE PPO BLUE CROSS OUT OF STATE PPO BLUE CROSS OUT OF STATE PPO BLUE CROSS OUT OF STATE PPO Care Teams Fly Worker Relationship Specialty Start Date End Date Pcp, Unknown PCP - General 06/18/22 Additional Source Comments The information contained in this document represents components of the legal health record. It is not the complete legal health record.[facility]
== END 2025-08-12 16:01 | disposition home or self-care (01) ==
LOC: HO.HCC 15:18
PROVIDERS: Visit Provider Internal Medicine
DX: F10.20 Alcohol dependence, uncomplicated (principal)

== ENCOUNTER → 2025-08-12 15:18 | Outpatient (BNVA) | payer BC, SELFPAY | PROVIDERS: Visit Provider Internal Medicine | DX: F10.20 Alcohol dependence, uncomplicated (principal) | CPT/HCPCS: 96372; J2315 ==

== ENCOUNTER → 2025-09-09 15:14 | Outpatient (AMB) | payer BC, SELFPAY ==
--- NOTE | 2025-09-09 07:56 | AM.OFFVISNUR ---
Vital Signs 09/09/25 15:36 BP 122/70 Pulse 72 Pulse Oximetry (%) 98 Intake Visit Reasons: Injection Allergies No Known Allergies (No Known Allergies*) Allergy (Verified 09/09/25 15:37) Nursing Note Tucker presents for his four week Vivitrol injection; he is alert, oriented, cooperative with care and presents with appropriate affect. Tucker reports a more regular work schedule though expressed frustration with current assignment. No issues with previous injection and no negative symptoms reported. Follow-up appointment in 4 weeks for next injection. Office Meds Vivitrol 380 mg intramuscular suspension,extended release Performing Provider: Jayde Page MD Performing Location: [facility] Administered by: Jaclyn Roberts RN on 09/09/25 16:13 Dose Route Admin Location Dispensed Lot Number Expiration Date [facility] Director Clinical Pharmacology 380 mg IM LG 380 mg 2025-3011T 11/10/27 88218-492-34 [employer] Total Dispensed Waste 380 mg 0 % Comments: Pt is present for Vivitrol injection, pt denies complications with previous injections and tolerated injection well. Pt educated on signs and symptoms of infection at the injection site, urged to call [facility] with any questions or concerns. Follow up appointment made in 4 weeks for next injection. Assessment & Plan Assessment & Plan Orders: Orders AMB Naltrexone Injection Patient Supplied (NC) Today F10.20 - Alcohol dependence, uncomplicated Coding
[2025-09-09 15:36] VITALS: BP 122/70; PULSE 72; O2SAT 98
--- OUTSIDE RECORDS SUMMARY | 2025-09-09 17:56 | XMS_ITS | Clinical Summary ---
Author Organization [facility] Address [address] [place], [place] [address] Phone Care Team Providers Care Travel Guide Name Role Phone Pcp, Unknown Primary Care [...] topic Medical Devices Not on file Insurance [facility] OUT [facility] PPO BLUE CROSS OUT OF STATE PPO BLUE CROSS OUT OF STATE PPO BLUE CROSS OUT OF STATE PPO BLUE CROSS OUT OF STATE PPO BLUE CROSS OUT OF STATE PPO BLUE CROSS OUT OF STATE PPO BLUE CROSS OUT OF STATE PPO BLUE [employer]OSS OUT OF STATE PPO Care Teams Travel Guide Relationship Specialty Start Date End Date Pcp, Unknown PCP - General 06/18/22 Additional Source Comments The information contained in this document represents components of the legal health record. It is not the complete legal health record.[facility]
== END ==
LOC: HO.HCC 15:14
DX: F10.20 Alcohol dependence, uncomplicated (principal)

== ENCOUNTER → 2025-09-09 15:14 | Outpatient (BNVA) | payer BC, SELFPAY | DX: F10.20 Alcohol dependence, uncomplicated (principal) | CPT/HCPCS: 96372; J2315 ==

== ENCOUNTER 2025-10-11 16:16 | Outpatient (AMB) | payer BC, SELFPAY ==
--- NOTE | 2025-10-11 14:41 | AM.OFFVISNUR ---
Vital Signs 10/11/25 16:22 BP 122/70 Pulse 100 Pulse Oximetry (%) 97 Intake Visit Reasons: Injection/ Per Nuran 4.45 PM Allergies No Known Allergies (No Known Allergies*) Allergy (Verified 10/11/25 16:23) Nursing Note Tucker presents for his four week Vivitrol injection; he is alert, oriented, cooperative with care and presents with appropriate affect. Tucker reports a good, quiet holiday with family and is looking forward to the same for Jol[place]; job location was changed alleviating stress that was evident last month. Follow up in 4 weeks for the next injection. Office Meds Vivitrol 380 mg intramuscular suspension,extended release Performing Provider: Jayde Page MD Performing Location: [facility] Administered by: Jaclyn Roberts RN on 10/11/25 16:45 Dose Route Admin Location Dispensed Lot Number Expiration Date [facility] Wax Pattern Coater 380 mg IM RG 380 mg 2025-3015T 11/10/27 80641-789-20 [employer] Total Dispensed Waste 380 mg 0 % Comments: Pt is present for Vivitrol injection, pt denies complications with previous injections and tolerated injection well. Pt educated on signs and symptoms of infection at the injection site, urged to call [facility] with any questions or concerns, pt verbalized understanding. Follow up appointment made in 4 weeks for next injection. Assessment & Plan Assessment & Plan Orders: Orders AMB Naltrexone Injection Patient Supplied (NC) Today F10.20 - Alcohol dependence, uncomplicated Coding
[2025-10-11 16:22] VITALS: BP 122/70; PULSE 100; O2SAT 97
--- OUTSIDE RECORDS SUMMARY | 2025-10-11 18:42 | XMS_ITS | Clinical Summary ---
Author Organization [facility] Address [address] [place], [place] [phone] Phone Care Team Providers Care Expense Analyst Name Role Phone Pcp, Unknown Primary Care [...] topic Medical Devices Not on file Insurance [facility] OUT [facility] PPO BLUE CROSS OUT OF STATE PPO BLUE CROSS OUT OF STATE PPO BLUE CROSS OUT OF STATE PPO BLUE CROSS OUT OF STATE PPO BLUE CROSS OUT OF STATE PPO BLUE CROSS OUT OF STATE PPO BLUE CROSS OUT OF STATE PPO BLUE CROSS OUT OF STATE PPO Care Teams Expense Analyst Relationship Specialty Start Date End Date Pcp, Unknown PCP - General 06/18/22 Additional Source Comments The information contained in this document represents components of the legal health record. It is not the complete legal health record.[facility]
== END 2025-10-11 16:30 | disposition home or self-care (01) ==
LOC: HO.HCC 16:16
DX: F10.20 Alcohol dependence, uncomplicated (principal)

== ENCOUNTER → 2025-10-11 16:16 | Outpatient (BNVA) | payer BC, SELFPAY | DX: F10.20 Alcohol dependence, uncomplicated (principal) | CPT/HCPCS: 96372; J2315 ==